=== PATIENT | female | born 1970 | race Caucasian/White ===

== ENCOUNTER 2016-09-06 09:09 | Emergency (ER) | payer SELFPAY ==
[~2016-09-06] VITALS: Ht 162.6 cm; Wt 99.8 kg
[~2016-09-06 09:09] MED LIST: ALBU2.5V5 NEB; AMLO5TAB2 PO; ATEN1TAB4 PO; AZIT250T6 PO; BENZ100C PO; BUDE10.2 IH; GUAI400T61 PO; GUAN1TAB PO; HYDR-971 PO; HYDR12.58 PO; HYDR25TA PO; HYDR5SYR PO; LORA0.5T96 PO; METH4TAB2 PO; NICO1PAT21 TD; Nicotine TD; OLME1TAB5 PO; OXYB15TA PO; OXYC1TAB9 PO; PRED50TA PO; SUVO10TA PO; TEMA15CA PO; VALA1000 PO; ZOLP10TA PO
[2016-09-06] MEDS ORDERED: 0.9 % SODIUM CHLORIDE 10 ML DISP.SYRIN. IV PRN (09:45)
--- NOTE | 2016-09-06 09:57 | PHYS DOC ---
Past Medical History Past Medical History: COPD, Hypertension, Migraines, Pneumonia, Other Additional Past Medical Histor: obesity, chronic back pain Past Surgical History: Other Additional Past Surgical Histo: D&C Alcohol Use: None Drug Use: None Adult General Chief Complaint Chief Complaint: MULTIPLE COMPLAINTS [facility] HPI Patient is a 46 year old female presents emergency room today with complaint of a lump on her right breast that she noticed 2-3 days ago. Patient states that it is painful. Patient states that she does not have a history of recurrent skin infections. She denies history of breast cancer for herself. There is a family history of breast cancer in which her older sister is a breast cancer survivor. Patient is a smoker. Patient denies fevers, chills or unexplained weight loss. Patient states that she had had some episodes of generalized weakness and isolated episodes of vomiting and diarrhea earlier this week. She states this is resolved. Patient states that she has not talked with her primary care doctor about this. Patient has a history of multiple chronic illnesses. She does have COPD and continues to smoke. Review of Systems Review of Systems Constitutional: Denies fever or chills [] Eyes: Denies change in visual acuity, redness, or eye pain [] HENT: Denies nasal congestion or sore throat [] Respiratory: Denies cough or shortness of breath [] Cardiovascular: No additional information not addressed in HPI [] GI: Denies abdominal pain, nausea, vomiting, bloody stools or diarrhea [] : Denies dysuria or hematuria [] Musculoskeletal: Denies back pain or joint pain [] Integument: Denies rash or skin lesions [] Neurologic: Denies headache, focal weakness or sensory changes [] Endocrine: Denies polyuria or polydipsia [] Current Medications Current Medications Current Medications Medications (Trade) Dose Ordered Sig/Franny Start Time Stop Time Status Last Admin Dose Admin Clindamycin Phosphate (Cleocin 600 Mg Premix) 50 ml @ 100 mls/hr 1X ONCE 09/06/16 10:00 09/06/16 10:29 DC 09/06/16 09:58 100 MLS/HR Ketorolac Tromethamine (Toradol) 30 mg 1X ONCE 09/06/16 11:00 09/06/16 11:01 DC 09/06/16 11:08 30 MG Morphine Sulfate 5 mg 5 mg 1X ONCE 09/06/16 10:00 09/06/16 10:01 DC 09/06/16 09:57 5 MG Sodium Chloride (Normal Saline Flush) 10 ml QSHIFT PRN 09/06/16 09:45 09/06/16 09:57 10 ML Allergies Allergies Allergies Coded Allergies Type Severity Reaction Last Updated Verified No Known Drug Allergies 09/06/16 No Physical Exam Physical Exam Constitutional: Well developed, well nourished, no acute distress, non-toxic appearance. Patient sitting upright in semi-Fowlers position in no acute distress. HENT: Normocephalic, atraumatic, bilateral external ears normal, oropharynx moist, no oral exudates, nose normal. [] Eyes: PERRLA, EOMI, conjunctiva normal, no discharge. [] Neck: Normal range of motion, no tenderness, supple, no stridor. [] Cardiovascular:Heart rate regular rhythm, no murmur [] Lungs & Thorax: Bilateral breath sounds clear to auscultation [] Abdomen: Bowel sounds normal, soft, no tenderness, no masses, no pulsatile masses. [] Skin: Patient has pendulous breast. There is a palpable, well-circumscribed subcutaneous lesion to the 6 o'clock position of her right areola. There appears to be a small fluctuant point to this lesion. There is no overlying erythema or peau d'orange. There is no nipple discharge. There is no axillary lymphadenopathy. Back: No tenderness, no CVA tenderness. [] Extremities: No tenderness, no cyanosis, no clubbing, ROM intact, no edema. [] Neurologic: Alert and oriented X 3, normal motor function, normal sensory function, no focal deficits noted. [] Psychologic: Affect normal, judgement normal, mood normal. [] Current Patient Data Vital Signs Vital Signs Date Time Temp Pulse Resp B/P Pulse Ox O2 Delivery O2 Flow Rate FiO2 09/06/16 10:01 93 16 120/83 92 Room Air 09/06/16 09:16 97.9 97.9 Lab Values Laboratory Tests Test 09/06/16 09:47 White Blood Count 8.7x10^3/uL (4.0-11.0) Red Blood Count 5.00x10^6/uL (3.50-5.40) Hemoglobin 15.0g/dL (12.0-15.5) Hematocrit 43.7% (36.0-47.0) Mean Corpuscular Volume 88fL (79-100) Mean Corpuscular Hemoglobin 30pg (25-35) Mean Corpuscular Hemoglobin Concent 34g/dL (31-37) Red Cell Distribution Width 13.9% (11.5-14.5) Platelet Count 233x10^3/uL (140-400) Neutrophils (%) (Auto) 57% (31-73) Lymphocytes (%) (Auto) 29% (24-48) Monocytes (%) (Auto) 9% (0-9) Eosinophils (%) (Auto) 4% (0-3) H Basophils (%) (Auto) 1% (0-3) Neutrophils # (Auto) 5.0x10^3uL (1.8-7.7) Lymphocytes # (Auto) 2.6x10^3/uL (1.0-4.8) Monocytes # (Auto) 0.8x10^3/uL (0.0-1.1) Eosinophils # (Auto) 0.3x10^3/uL (0.0-0.7) Basophils # (Auto) 0.1x10^3/uL (0.0-0.2) Sodium Level 140mmol/L (136-145) Potassium Level 4.3mmol/L (3.5-5.1) Chloride Level 104mmol/L (98-107) Carbon Dioxide Level 27mmol/L (21-32) Anion Gap 9 (6-14) Blood Urea Nitrogen 13mg/dL (7-20) Creatinine 0.6mg/dL (0.6-1.0) Estimated GFR (Cockcroft-Gault) 106.7 BUN/Creatinine Ratio 22 (6-20) H Glucose Level 109mg/dL (70-99) H Calcium Level 9.2mg/dL (8.5-10.1) Total Bilirubin 0.2mg/dL (0.2-1.0) Aspartate Amino Transferase (AST) 15U/L (15-37) Alanine Aminotransferase (ALT) 20U/L (14-59) Alkaline Phosphatase 80U/L (46-116) Total Protein 7.7g/dL (6.4-8.2) Albumin 3.6g/dL (3.4-5.0) Albumin/Globulin Ratio 0.9 (1.0-1.7) L Laboratory Tests 09/06/16 09:47 Laboratory Tests 09/06/16 09:47 EKG EKG [] Radiology/Procedures Radiology/Procedures [facility] [address] [place] [address] IMAGING REPORT Signed PATIENT: AMARI GREEN ACCOUNT: [id number] : 1970 LOCATION: ER AGE: 46 SEX: F EXAM STATUS: REG ER ORD. PHYSICIAN: ROSELINE HASTINGS REASON: swollen lesion/pain at 6 o'clock position of areola PROCEDURE: BREAST RIGHT Right breast ultrasound, 09/06/2016: History: Swelling, pain The area of clinical concern at the 6:00 location was carefully scanned. There is a 7 mm hypoechoic mass within the skin in the area of concern. It demonstrates internal hypervascularity posteriorly and in the adjacent soft tissues. There is an anterior component which does not demonstrate blood flow and may represent a complicated fluid component. The underlying breast tissues demonstrate a normal heterogeneous echo pattern. No underlying breast mass is evident. IMPRESSION: Inflamed skin lesion as described above with diagnostic considerations including an infected epidermal inclusion cyst or carbuncle. No underlying mass within the breast is seen, and therefore inflammatory breast cancer involving the skin is much less likely. Clinical follow-up is suggested. Routine mammography, following abatement of this inflammatory process, is also suggested if not already performed elsewhere. DICTATED and SIGNED BY: MAXWELL ZEPEDA MD DATE: 09/06/16900 CC: ROSELINE HASTINGS; ANN DAVENPORT MD; NON,STAFF ~ Course & Med Decision Making Course & Med Decision Making Pertinent Labs and Imaging studies reviewed. (See chart for details) [] Dragon Disclaimer Dragon Disclaimer This electronic medical record was generated, in whole or in part, using a voice recognition dictation system. Departure Departure Impression: Primary Impression: Abscess Disposition: 01 HOME, SELF-CARE Condition: GOOD Referrals: ANN DAVENPORT MD (PCP) YOUNG QUIROGA MD Patient Instructions: Abscess, Care After Additional Instructions: 1. Take the medication as prescribed. 2. Apply warm compresses over the area every 2 hours for 20-30 minutes at a time. 3. Avoid squeezing or poking the area. 4. Review the discharge instructions provided for self-care and reasons to return the emergency department. 5. Call the number provided in your discharge paperwork to schedule follow-up appointment with a surgeon for next week. Scripts Ketorolac Tromethamine 10 Mg Tablet1 Tab PO PRN Q6HRS #20 TAB Prov:ROSELINE HASTINGS 09/06/16 Clindamycin Hcl 300 Mg [id number] Mg PO QID #40 CAP Prov:ROSELINE HASTINGS 09/06/16 ROSELINE HASTINGS Sep 06, 2016 09:57
[2016-09-06 10:00] LABS: BASO # 0.1 x10^3/uL (0.0-0.2); BASO % 1 % (0-3); EOS % 4 % (0-3); HEMATOCRIT 43.7 % (36.0-47.0); LYMPH # 2.6 x10^3/uL (1.0-4.8); LYMPH % 29 % (24-48); MEAN CORPUSCULAR HEMOGLOBIN 30 pg (25-35); MEAN CORPUSCULAR HGB CONC 34 g/dL (31-37); MEAN CORPUSCULAR VOLUME 88 fL (79-100); MONO % 9 % (0-9); NEUT % 57 % (31-73); PLATELET COUNT 233 x10^3/uL (140-400); RED CELL DISTRIBUTION WIDTH 13.9 % (11.5-14.5); WHITE BLOOD COUNT 8.7 x10^3/uL (4.0-11.0)
[2016-09-06] MEDS ORDERED: CLINDAMYCIN 600MG PREMIX 50 ML IV ONE (10:00)
[2016-09-06] MEDS ORDERED: MORPHINE SULFATE 10 MG/ML VIAL. IV ONE (10:00)
[2016-09-06 10:43] LABS: CALCIUM 9.2 mg/dL (8.5-10.1); CREATININE 0.6 mg/dL (0.6-1.0); GFR 106.7; POTASSIUM 4.3 mmol/L (3.5-5.1)
[2016-09-06 10:49] LABS: ALBUMIN 3.6 g/dL (3.4-5.0); ALBUMIN/GLOBULIN RATIO 0.9 (1.0-1.7); TOTAL BILIRUBIN 0.2 mg/dL (0.2-1.0); TOTAL PROTEIN 7.7 g/dL (6.4-8.2)
[2016-09-06] MEDS ORDERED: KETOROLAC TROMETHAMINE 30 MG/ML INJ. IV ONE (11:00)
--- NOTE | 2016-09-06 11:11 | RAD ---
Right breast ultrasound, 09/06/2016: History: Swelling, pain The area of clinical concern at the 6:00 location was carefully scanned. There is a 7 mm hypoechoic mass within the skin in the area of concern. It demonstrates internal hypervascularity posteriorly and in the adjacent soft tissues. There is an anterior component which does not demonstrate blood flow and may represent a complicated fluid component. The underlying breast tissues demonstrate a normal heterogeneous echo pattern. No underlying breast mass is evident. IMPRESSION: Inflamed skin lesion as described above with diagnostic considerations including an infected epidermal inclusion cyst or carbuncle. No underlying mass within the breast is seen, and therefore inflammatory breast cancer involving the skin is much less likely. Clinical follow-up is suggested. Routine mammography, following abatement of this inflammatory process, is also suggested if not already performed elsewhere.
[2016-09-06] MEDS ORDERED: CLIN300C86 PO (11:23)
[2016-09-06] MEDS ORDERED: KETO10TA PO (11:23)
[2016-09-06 11:26] VITALS: BP 133/78
== END 2016-09-06 11:33 | disposition home or self-care (01) ==
LOC: ER 09:09
DX: N61.1 Abscess of the breast and nipple (principal); J44.9 Chronic obstructive pulmonary disease, unspecified; I10 Essential (primary) hypertension; G89.29 Other chronic pain; G43.909 Migraine, unspecified, not intractable, without status migrainosus; E66.9 Obesity, unspecified; F17.200 Nicotine dependence, unspecified, uncomplicated; Z80.3 Family history of malignant neoplasm of breast; Z87.01 Personal history of pneumonia (recurrent); Z68.37 Body mass index [BMI] 37.0-37.9, adult
CPT/HCPCS: 36415; 76641; 80053; 85027; 96365; 96375; 99285; J1885; J2270; J3490

== ENCOUNTER 2017-01-02 23:11 | Inpatient (IN) | payer SELFPAY ==
[~2017-01-02] VITALS: Ht 162.6 cm; Wt 57.7 kg
[~2017-01-02 23:11] MED LIST changes: +CLIN300C8 PO; +KETO10TA PO; +OLME1TAB25 PO; -OLME1TAB5 PO
[2017-01-02] MEDS ORDERED: IPRATRPIUM/ALBUTEROL 0.5/2.5MG 3 ML NEBU. NEB ONE (23:45)
[2017-01-02] MEDS ORDERED: DEXAMETHASONE SOD PHOS 4 MG/ML VIAL IV ONE (23:45)
[2017-01-02] MEDS ORDERED: ONDANSETRON PF 4 MG/2 ML VIAL. IV ONE (23:45)
[2017-01-02 23:49] LABS: BASO # 0.1 x10^3/uL (0.0-0.2); BASO % 1 % (0-3); EOS % 1 % (0-3); HEMATOCRIT 43.5 % (36.0-47.0); HEMOGLOBIN 14.6 g/dL (12.0-15.5); LYMPH # 5.1 x10^3/uL (1.0-4.8); LYMPH % 34 % (24-48); MEAN CORPUSCULAR HEMOGLOBIN 30 pg (25-35); MEAN CORPUSCULAR HGB CONC 34 g/dL (31-37); MEAN CORPUSCULAR VOLUME 90 fL (79-100); MONO % 6 % (0-9); NEUT % 58 % (31-73); PLATELET COUNT 250 x10^3/uL (140-400); RED BLOOD COUNT 4.84 x10^6/uL (3.50-5.40); RED CELL DISTRIBUTION WIDTH 14.1 % (11.5-14.5); WHITE BLOOD COUNT 14.9 x10^3/uL (4.0-11.0)
--- NOTE | 2017-01-02 23:54 | PHYS DOC ---
Past Medical History Past Medical History: COPD, Hypertension, Migraines, Pneumonia, Other Additional Past Medical Histor: obesity, chronic back pain Past Surgical History: Other Additional Past Surgical Histo: D&C Alcohol Use: None Drug Use: None Adult General Chief Complaint Chief Complaint: SHORTNESS OF BREATH HPI HPI Patient is a 46 year old F who presents with wheezing and shortness of breath. Patient has history of smoking with COPD presents with wheezing and difficult breathing for the past 3 days. Patient's O2 saturation room air was 89%, patient does not wear home oxygen. Patient still smoking. Patient denies any chest pain. Patient denies any fevers. Patient denies a productive cough. Patient has no other complaints. Review of Systems Review of Systems GEN: Denies fevers, chills, sweats HEENT: Denies blurred vision, sore throat CV: Denies chest pain RESP: SOA , wheezing GI: Denies n/v/d NEURO: Denies confusion, dizziness MSK: Denies weakness, joint pain/swelling Current Medications Current Medications Current Medications Medications (Trade) Dose Ordered Sig/Franny Start Time Stop Time Status Last Admin Dose Admin Albuterol/ Ipratropium (Duoneb) 3 ml 1X ONCE 01/02/17 23:45 01/02/17 23:46 DC 01/02/17 23:52 3 ML Dexamethasone Sodium Phosphate (Decadron) 10 mg 1X ONCE 01/02/17 23:45 01/02/17 23:46 DC 01/02/17 23:40 10 MG Fentanyl Citrate (Fentanyl 2ml Vial) 50 mcg 1X ONCE 01/03/17 00:15 01/03/17 00:16 DC 01/03/17 00:24 50 MCG Info (Do NOT chart on this entry -- for MONITORING) 1 each PRN DAILY PRN 01/03/17 00:15 01/05/17 00:14 Iohexol (Omnipaque 300 Mg/ml) 75 ml 1X ONCE 01/03/17 00:30 01/03/17 00:31 DC 01/03/17 00:44 75 ML Ondansetron HCl (Zofran) 4 mg 1X ONCE 01/02/17 23:45 01/02/17 23:46 DC 01/02/17 23:40 4 MG Allergies Allergies Allergies Coded Allergies Type Severity Reaction Last Updated Verified No Known Drug Allergies 09/06/16 No Physical Exam Physical Exam GEN.: No apparent distress. Alert and oriented. HEENT: Head is normocephalic, atraumatic NECK: Supple. LUNGS: Tachypnea, wheezing bilaterally inspiratory and expiratory HEART: RRR, S1, S2 present. Peripheral pulses intact ABDOMEN: Soft, nontender. Positive bowel sounds. EXTREMITIES: Without any cyanosis. NEUROLOGIC: Normal speech, normal tone PSYCHIATRIC: Normal affect, normal mood. SKIN: No ulcerations Current Patient Data Vital Signs Vital Signs Date Time Temp Pulse Resp B/P (MAP) Pulse Ox O2 Delivery O2 Flow Rate FiO2 01/03/17 00:40 83 22 126/73 (90) 94 Nasal Cannula 3.0 01/02/17 23:17 98.0 98.0 Lab Values Laboratory Tests Test 01/02/17 23:35 White Blood Count 14.9 x10^3/uL (4.0-11.0) H Red Blood Count 4.84 x10^6/uL (3.50-5.40) Hemoglobin 14.6 g/dL (12.0-15.5) Hematocrit 43.5 % (36.0-47.0) Mean Corpuscular Volume 90 fL (79-100) Mean Corpuscular Hemoglobin 30 pg (25-35) Mean Corpuscular Hemoglobin Concent 34 g/dL (31-37) Red Cell Distribution Width 14.1 % (11.5-14.5) Platelet Count 250 x10^3/uL (140-400) Neutrophils (%) (Auto) 58 % (31-73) Lymphocytes (%) (Auto) 34 % (24-48) Monocytes (%) (Auto) 6 % (0-9) Eosinophils (%) (Auto) 1 % (0-3) Basophils (%) (Auto) 1 % (0-3) Neutrophils # (Auto) 8.7 x10^3uL (1.8-7.7) H Lymphocytes # (Auto) 5.1 x10^3/uL (1.0-4.8) H Monocytes # (Auto) 0.8 x10^3/uL (0.0-1.1) Eosinophils # (Auto) 0.2 x10^3/uL (0.0-0.7) Basophils # (Auto) 0.1 x10^3/uL (0.0-0.2) Sodium Level 143 mmol/L (136-145) Potassium Level 4.2 mmol/L (3.5-5.1) Chloride Level 104 mmol/L (98-107) Carbon Dioxide Level 35 mmol/L (21-32) H Anion Gap 4 (6-14) L Blood Urea Nitrogen 17 mg/dL (7-20) Creatinine 0.7 mg/dL (0.6-1.0) Estimated GFR (Cockcroft-Gault) 89.3 BUN/Creatinine Ratio 24 (6-20) H Glucose Level 100 mg/dL (70-99) H Calcium Level 8.8 mg/dL (8.5-10.1) Total Bilirubin 0.2 mg/dL (0.2-1.0) Aspartate Amino Transferase (AST) 8 U/L (15-37) L Alanine Aminotransferase (ALT) 19 U/L (14-59) Alkaline Phosphatase 77 U/L (46-116) Troponin I Quantitative < 0.017 ng/mL (0.000-0.055) Total Protein 7.4 g/dL (6.4-8.2) Albumin 3.8 g/dL (3.4-5.0) Albumin/Globulin Ratio 1.1 (1.0-1.7) Laboratory Tests 01/02/17 23:35 Laboratory Tests 01/02/17 23:35 EKG EKG 2323: EKG shows normal sinus rhythm rate of 82 no STEMI [] Radiology/Procedures Radiology/Procedures Chest x-ray NAD CT angiogram of the chest shows a left lower lobe PE [] Course & Med Decision Making Course & Med Decision Making Pertinent Labs and Imaging studies reviewed. (See chart for details) ED course: Patient was seen and examined emergency room CBC, CMP, troponin, chest x-ray, EKG, CT scan of the chest was ordered 0100: Patient still wheezing heavily and well get an ABG in place the patient on BiPAP 0110: Radiologist called stating that the patient has a left lower lobe PE 0115: Explained results the patient and plan to admit to the ICU and be placed on a heparin drip Discussed CC/HP/PMH with Dr. Comer and recommends admit [] [] Dragon Disclaimer Dragon Disclaimer This electronic medical record was generated, in whole or in part, using a voice recognition dictation system. Departure Departure Impression: Primary Impression: COPD (chronic obstructive pulmonary disease) case management patient Additional Impression: Pulmonary embolus Disposition: 09 ADMITTED INPATIENT Admitting Physician: Jenna Comer Condition: IMPROVED Referrals: UNKNOWN PCP NAME (PCP) Problem Qualifiers ARON KUMAR DO Jan 02, 2017 23:53
[2017-01-03] VITALS (20 sets, daily range): BP systolic 90–141; BP diastolic 47–93
[2017-01-03 00:03] LABS: CALCIUM 8.8 mg/dL (8.5-10.1); CREATININE 0.7 mg/dL (0.6-1.0); GFR 89.3; POTASSIUM 4.2 mmol/L (3.5-5.1)
[2017-01-03 00:05] LABS: ALBUMIN 3.8 g/dL (3.4-5.0); ALBUMIN/GLOBULIN RATIO 1.1 (1.0-1.7); TOTAL BILIRUBIN 0.2 mg/dL (0.2-1.0); TOTAL PROTEIN 7.4 g/dL (6.4-8.2)
[2017-01-03] MEDS ORDERED: fentaNYL PF VIAL 100 MCG/2 ML VIAL IV ONE (00:15)
[2017-01-03] MEDS ORDERED: CONTRAST GIVEN MC PRN (00:15)
[2017-01-03] MEDS ORDERED: IOHEXOL 300 MG/ML 75 ML VIAL IV ONE (00:30)
--- NOTE | 2017-01-03 01:17 | RAD ---
CT angiography chest with contrast HISTORY: Shortness of breath. TECHNIQUE: Helical CT imaging of the chest with multiplanar 3-D MIP reconstructions of the pulmonary arteries to assess for emboli with 75 mL Omnipaque 300 intravenous contrast. FINDINGS: At the left lower lobe anterior basilar pulmonary artery demonstrates an anterior eccentric nonocclusive filling defect on axial images 73-77 raise the possibility of a small nonocclusive pulmonary embolism although this is in a region of respiratory motion artifact raising the possibility of an artifact given that the other vessels at this area of motion do not demonstrate the same artifact raises suspicion of potential embolus. Thoracic aorta unremarkable. Heart size normal. Esophagus unremarkable. No adenopathy in the chest. Centrilobular emphysema preferentially involving the right upper lobe. Calcified granulomas mediastinum and right hilum. Right upper lobe subsolid nodule maximum diameter 1.9 cm. No pleural effusions. Bones unremarkable. 1 cm nonspecific left hepatic lobe hypodense lesion. IMPRESSION: 1. Small nonocclusive pulmonary artery embolus of the left lower lobe as described above. 2. 1.9 cm subsolid pulmonary nodule of the right upper lobe. Follow-up CT imaging in 3-6 months is advised per Fleischner guidelines. Critical results called to Dr. Henriquez 1:12 AM January 03, 2017. Exposure: One or more of the following individualized dose reduction techniques were utilized for this examination: 1. Automated exposure control 2. Adjustment of the mA and/or kV according to patient size 3. Use of iterative reconstruction technique Electronically signed by: Manuel Aguilar MD (01/03/2017 1:12 AM) [id number]
[2017-01-03 01:27] LABS: PH ABG 7.31 (7.35-7.45)
[2017-01-03 01:28] LABS: ALLEN TEST positive; FIO2 ABG 32; HCO3 ABG 28 mmol/L (21-28); PCO2 ABG 57 mmHg (35-46); PO2 ABG 86 mmHg (75-108); SAT O2 ABG 95 % (92-99)
[2017-01-03] MEDS ORDERED: ONDANSETRON PF 4 MG/2 ML VIAL. IV PRN (01:30)
[2017-01-03] MEDS ORDERED: HEPARIN for IV BOLUS 10,000 UNIT/10 ML VIAL. IV PRN ×2 (01:30)
[2017-01-03] MEDS ORDERED: ACETAMINOPHEN 325 MG TABLET. PO PRN (01:30)
[2017-01-03] MEDS ORDERED: ANTI-COAG MONITOR BY PHARMACY. MC PRN (01:30)
[2017-01-03] MEDS: HEPARIN 25,000UTS/500ML PREMIX 500 ML IV PRN ×2 (01:48→17:03)
[2017-01-03] MEDS ORDERED: HEPARIN for IV BOLUS 10,000 UNIT/10 ML VIAL. IV ONE (02:00)
[2017-01-03] MEDS: MORPHINE SULFATE 4 MG/ML DISP.SYRIN. IV PRN ×3 (05:23→10:57)
[2017-01-03] MEDS ORDERED: LISI-334 PO (05:36)
[2017-01-03] MEDS ORDERED: LOVA20TA2 PO (05:36)
[2017-01-03] MEDS ORDERED: PRED-220 PO (05:36)
[2017-01-03] MEDS ORDERED: AMLODIPINE (05:36)
--- NOTE | 2017-01-03 06:09 | EKG ---
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
[2017-01-03 07:53] LABS: HCO3 ABG 31 mmol/L (21-28); PH ABG 7.33 (7.35-7.45); PO2 ABG 72 mmHg (75-108); SAT O2 ABG 94 % (92-99)
[2017-01-03 08:58] LABS: FIO2 ABG 36; PCO2 ABG 60 mmHg (35-46)
[2017-01-03] MEDS ORDERED: predniSONE 10 MG TABLET PO SCH (09:00)
[2017-01-03] MEDS: IPRATRPIUM/ALBUTEROL 0.5/2.5MG 3 ML NEBU. NEB SCH ×4 (09:06→20:00)
--- NOTE | 2017-01-03 09:13 | PDOC1 ---
History and Physical Date of Admission Date of Admission DATE: 01/03/17 TIME: 09:07 Identification/Chief Complaint Chief Complaint short of breath Problems: Source Source: Caregiver (sister), Chart review, Patient History of Present Illness History of Present Illness Ms. Valencia, is a 46 year old admitted to ICU overnight with acute wheezing and shortness of breath. ABG showed acidosis, IV steroids given, pt has been on Bipap overnight, and feels a little better. Patient has history of early COPD and had new wheezing and difficulty breathing over 3 days, and marked distress in the ER last night per patient and her sister this AM. Sa02 was 89%, ongoing tobacco use, but down to 1/4 ppd. no chest pain, some anxiety, is tearful this AM. Past Medical History Cardiovascular: HTN Pulmonary: COPD GI: GERD Heme/Onc: No pertinent hx Hepatobiliary: No pertinent hx Psych: Anxiety, Depression Musculoskeletal: low back pain, Osteoarthritis, Other (spinal stenosis) Infectious disease: No pertinent hx Renal/: Other Endocrine: No pertinent hx Past Surgical History Past Surgical History: Other Family History Family History: Coronary Artery Disease, Depression, Hypertension, Kidney Disease, Stroke, Urinary Tract Infection Social History Smoke: <1 pack per day ALCOHOL: none Drugs: None Current Problem List Problem List Problems Medical Problems: (1) COPD (chronic obstructive pulmonary disease) case managementpatient Status: Acute (2) Pulmonary embolus Status: Acute Problems: Current Medications Current Medications Current Medications Albuterol/ Ipratropium (Duoneb) 3 ml 1X ONCE NEB Last administered on 23:52; Start 01/02/17 at 23:45; Stop 01/02/17 at 23:46; Status DC Dexamethasone Sodium Phosphate (Decadron) 10 mg 1X ONCE IV Last administered on 01/02/17 23:40; Start 01/02/17 at 23:45; Stop 01/02/17 at 23:46; Status DC Ondansetron HCl (Zofran) 4 mg 1X ONCE IV Last administered on 01/02/17 23:40; Start 01/02/17 at 23:45; Stop 01/02/17 at 23:46; Status DC Fentanyl Citrate (Fentanyl 2ml Vial) 50 mcg 1X ONCE IV Last administered on 00:24; Start 01/03/17 at 00:15; Stop 01/03/17 at 00:16; Status DC Iohexol (Omnipaque 300 Mg/ml) 75 ml 1X ONCE IV Last administered on 01/03/17 00:44; Start 01/03/17 at 00:30; Stop 01/03/17 at 00:31; Status DC Info (Do NOT chart on this entry -- for MONITORING) 1 each PRN DAILY PRN MC SEE COMMENTS; Start 01/03/17 at 00:15; Stop 01/05/17 at 00:14 Heparin Sodium (Porcine) (Heparin Sodium) 8,000 unit 1X ONCE IV Last administered on 01/03/17 01:45; Start 01/03/17 at 02:00; Stop 01/03/17 at 02:01; Status DC Heparin Sodium/ Dextrose 500 ml @ 0 mls/hr CONT PRN IV SEE I/O RECORD Last administered on 01/03/17 01:48; Start 01/03/17 at 01:30 Heparin Sodium (Porcine) (Heparin Sodium) 3,000 unit PRN Q6HRS PRN IV FOR UFH LEVEL LESS THAN 0.2; Start 01/03/17 at 01:30 Heparin Sodium (Porcine) (Heparin Sodium) 1,500 unit PRN Q6HRS PRN IV FOR UFH LEVEL 0.2 - 0.29; Start 01/03/17 at 01:30 Warfarin Sodium (Coumadin Per Pharmacy) 1 each PRN DAILY PRN MC PER PROTOCOL; Start 01/03/17 at 01:30 Ondansetron HCl (Zofran) 4 mg PRN Q8HRS PRN IV NAUSEA/VOMITING; Start 01/03/17 at 01:30; Stop 01/04/17 at 01:29 Morphine Sulfate 4 mg PRN Q2HR PRN IV SEVERE PAIN Last administered on 07:35; Start 01/03/17 at 01:30; Stop 01/04/17 at 01:29 Acetaminophen (Tylenol) 650 mg PRN Q4HRS PRN PO FEVER; Start 01/03/17 at 01:30; Stop 01/04/17 at 01:29 Info (Anti-Coagulation Monitoring By Pharmacy) 1 each PRN DAILY PRN MC SEE COMMENTS Last administered on 01/03/17 03:42; Start 01/03/17 at 01:30 Lorazepam (Ativan) 1 mg 1X ONCE IV Last administered on 01/03/17t 01:52; Start 01/03/17 at 02:00; Stop 01/03/17 at 02:01; Status DC Active Scripts Active [place] 5-325 Tablet (Acetaminophen/Hydrocodone Bitart) 1 Each Tablet 1-2 Tab PO Q4-6HRS Reported [amlododipine] Lovastatin 20 Mg Tablet 20 Mg PO HS Lisinopril 20 Mg Tablet 20 Mg PO DAILY Prednisone 10 Mg Tablet 10 Mg PO DAILY Albuterol Sulfate Neb Soln (Albuterol Sulfate) 2.5 Mg/3 Ml Vial.neb 2.5 Mg NEB BID Allergies Allergies: Coded Allergies: No Known Drug Allergies (Unverified , 09/06/16) ROS General: No: Chills, Night Sweats, Fatigue, Malaise, Appetite, Other PSYCHOLOGICAL ROS: No: Anxiety, Behavioral Disorder, Concentration difficultie , Decreased libido, Depression, Disorientation, Hallucinations, Hostility, Irritablity, Memory difficulties, Mood Swings, Obsessive thoughts, Physical abuse, Sexual abuse, Sleep disturbances, Suicidal ideation, Other Eyes: No Blurry vision, No Decreased vision, No Double vision, No Dry eyes, No Excessive tearing, No Eye Pain, No Itchy Eyes, No Loss of vision, No Photophobia , No Scotomata, No Uses contacts, No Uses glasses, No Other HEENT: YES: Heacaches, No: Visual Changes, Hearing change, Nasal congestion, Nasal discharge, Oral lesions, Sinus pain, Sore Throat, Epistaxis, Sneezing, Snoring, Tinnitus, Vertigo, Vocal changes, Other Respiratory: YES: Cough, Shortness of breath, SOB with excertion, No: Hemoptysis, Orthopnea, Pleuritic Pain, Sputum Changes, Stridor, Tachypnea , Wheezing, Other Cardiovascular: No Chest Pain, No Palpitations, No Orthopnea, No Paroxysmal Noc. Dyspnea, No Edema, No Lt Headedness, No Other Gastrointestinal: Yes Nausea, No Vomiting, No Abdominal Pain, No Diarrhea, No Constipation, No Melena, No Hematochezia, No Other Genitourinary: No Dysuria, No Frequency, No Incontinence, No Hematuria, No Retention, No Discharge, No Urgency, No Pain, No Flank Pain, No Other, No , No , No , No , No , No , No Musculoskeletal: Yes Gait Disturbance, Yes Joint Pain, Yes Joint Stiffness Neurological: Yes Numbness/Tingling, No Behavorial Changes, No Bowel/Bladder ControlChng, No Confusion, No Dizziness, No Gait Disturbance, No Headaches, No Impaired Coord/balance, No Memory Loss, No Seizures, No Speech Problems, No Tremors, No Visual Changes, No Weakness, No Other Skin: Yes Dry Skin, No Eczema, No Hair Changes, No Lumps, No Mole Changes, No Mottling, No Nail Changes, No Pruritus, No Rash, No Skin Lesion Changes, No Other, No Acne Physical Exam General: Alert, Oriented X3, Cooperative, moderate distress HEENT: Atraumatic, PERRLA, EOMI, Mucous membr. moist/pink Lungs: Other (mod low vol for age, no rhonchi, no wheeze, ) Heart: no gallops, no murmurs Abdomen: Normal bowel sounds, Soft (obese) Extremities: No edema, Normal pulses Skin: No rashes Neuro: Normal speech, Normal tone, Sensation intact Psych/Mental Status: Mental status NL, Other (affect flat, tearful) Vitals Vitals Vital Signs Date Time Temp Pulse Resp B/P (MAP) Pulse Ox O2 Delivery O2 Flow Rate FiO2 01/03/17 08:00 98.6 100 25 141/93 (109) 94 Nasal Cannula 4.0 98.6 Labs Labs Laboratory Tests Test 01/02/17 23:35 01/03/17 01:08 01/03/17 07:45 01/03/17 07:48 White Blood Count 14.9 x10^3/uL (4.0-11.0) Red Blood Count 4.84 x10^6/uL (3.50-5.40) Hemoglobin 14.6 g/dL (12.0-15.5) Hematocrit 43.5 % (36.0-47.0) Mean Corpuscular Volume 90 fL (79-100) Mean Corpuscular Hemoglobin 30 pg (25-35) Mean Corpuscular Hemoglobin Concent 34 g/dL (31-37) Red Cell Distribution Width 14.1 % (11.5-14.5) Platelet Count 250 x10^3/uL (140-400) Neutrophils (%) (Auto) 58 % (31-73) Lymphocytes (%) (Auto) 34 % (24-48) Monocytes (%) (Auto) 6 % (0-9) Eosinophils (%) (Auto) 1 % (0-3) Basophils (%) (Auto) 1 % (0-3) Neutrophils # (Auto) 8.7 x10^3uL (1.8-7.7) Lymphocytes # (Auto) 5.1 x10^3/uL (1.0-4.8) Monocytes # (Auto) 0.8 x10^3/uL (0.0-1.1) Eosinophils # (Auto) 0.2 x10^3/uL (0.0-0.7) Basophils # (Auto) 0.1 x10^3/uL (0.0-0.2) Sodium Level 143 mmol/L (136-145) Potassium Level 4.2 mmol/L (3.5-5.1) Chloride Level 104 mmol/L (98-107) Carbon Dioxide Level 35 mmol/L (21-32) Anion Gap 4 (6-14) Blood Urea Nitrogen 17 mg/dL (7-20) Creatinine 0.7 mg/dL (0.6-1.0) Estimated GFR (Cockcroft-Gault) 89.3 BUN/Creatinine Ratio 24 (6-20) Glucose Level 100 mg/dL (70-99) Calcium Level 8.8 mg/dL (8.5-10.1) Total Bilirubin 0.2 mg/dL (0.2-1.0) Aspartate Amino Transf (AST/SGOT) 8 U/L (15-37) Alanine Aminotransferase (ALT/SGPT) 19 U/L (14-59) Alkaline Phosphatase 77 U/L (46-116) Troponin I Quantitative < 0.017 ng/mL (0.000-0.055) Total Protein 7.4 g/dL (6.4-8.2) Albumin 3.8 g/dL (3.4-5.0) Albumin/Globulin Ratio 1.1 (1.0-1.7) O2 Saturation 95 % (92-99) 94 % (92-99) Arterial Blood pH 7.31 (7.35-7.45) 7.33 (7.35-7.45) Arterial Blood pCO2 at Patient Temp 57 mmHg (35-46) 60 mmHg (35-46) Arterial Blood pO2 at Patient Temp 86 mmHg (75-108) 72 mmHg (75-108) Arterial Blood HCO3 28 mmol/L (21-28) 31 mmol/L (21-28) Arterial Blood Base Excess 1 mmol/L (-3-3) 3 mmol/L (-3-3) FiO2 32 36 Prothrombin Time 13.0 SEC (11.7-14.0) Prothromb Time International Ratio 1.0 (0.8-1.1) Heparin Anti-Xa Act, Unfractionated 0.88 IU/mL (0.30-0.70) Laboratory Tests Test 01/02/17 23:35 01/03/17 01:08 01/03/17 07:45 01/03/17 07:48 White Blood Count 14.9 x10^3/uL (4.0-11.0) Red Blood Count 4.84 x10^6/uL (3.50-5.40) Hemoglobin 14.6 g/dL (12.0-15.5) Hematocrit 43.5 % (36.0-47.0) Mean Corpuscular Volume 90 fL (79-100) Mean Corpuscular Hemoglobin 30 pg (25-35) Mean Corpuscular Hemoglobin Concent 34 g/dL (31-37) Red Cell Distribution Width 14.1 % (11.5-14.5) Platelet Count 250 x10^3/uL (140-400) Neutrophils (%) (Auto) 58 % (31-73) Lymphocytes (%) (Auto) 34 % (24-48) Monocytes (%) (Auto) 6 % (0-9) Eosinophils (%) (Auto) 1 % (0-3) Basophils (%) (Auto) 1 % (0-3) Neutrophils # (Auto) 8.7 x10^3uL (1.8-7.7) Lymphocytes # (Auto) 5.1 x10^3/uL (1.0-4.8) Monocytes # (Auto) 0.8 x10^3/uL (0.0-1.1) Eosinophils # (Auto) 0.2 x10^3/uL (0.0-0.7) Basophils # (Auto) 0.1 x10^3/uL (0.0-0.2) Sodium Level 143 mmol/L (136-145) Potassium Level 4.2 mmol/L (3.5-5.1) Chloride Level 104 mmol/L (98-107) Carbon Dioxide Level 35 mmol/L (21-32) Anion Gap 4 (6-14) Blood Urea Nitrogen 17 mg/dL (7-20) Creatinine 0.7 mg/dL (0.6-1.0) Estimated GFR (Cockcroft-Gault) 89.3 BUN/Creatinine Ratio 24 (6-20) Glucose Level 100 mg/dL (70-99) Calcium Level 8.8 mg/dL (8.5-10.1) Total Bilirubin 0.2 mg/dL (0.2-1.0) Aspartate Amino Transf (AST/SGOT) 8 U/L (15-37) Alanine Aminotransferase (ALT/SGPT) 19 U/L (14-59) Alkaline Phosphatase 77 U/L (46-116) Troponin I Quantitative < 0.017 ng/mL (0.000-0.055) Total Protein 7.4 g/dL (6.4-8.2) Albumin 3.8 g/dL (3.4-5.0) Albumin/Globulin Ratio 1.1 (1.0-1.7) O2 Saturation 95 % (92-99) 94 % (92-99) Arterial Blood pH 7.31 (7.35-7.45) 7.33 (7.35-7.45) Arterial Blood pCO2 at Patient Temp 57 mmHg (35-46) 60 mmHg (35-46) Arterial Blood pO2 at Patient Temp 86 mmHg (75-108) 72 mmHg (75-108) Arterial Blood HCO3 28 mmol/L (21-28) 31 mmol/L (21-28) Arterial Blood Base Excess 1 mmol/L (-3-3) 3 mmol/L (-3-3) FiO2 32 36 Prothrombin Time 13.0 SEC (11.7-14.0) Prothromb Time International Ratio 1.0 (0.8-1.1) Heparin Anti-Xa Act, Unfractionated 0.88 IU/mL (0.30-0.70) VTE Prophylaxis Ordered VTE Prophylaxis Devices: Yes VTE Pharmacological Prophylaxi: Yes Assessment/Plan Assessment/Plan Acute on chronic hypercarbic respiratory failure, acidosis on ABG IV steroid, change to PO, nebs and inhl steroid, no sputum, cxr clear, no abx started New pulmonary embolism with subclinical hypoxia, replace 02 as needed, on heparin gtt, start coumadin today per pharmacy. pt has no health insurance, f/ u may be difficult leukocytosis, had been taking prednisone, +SIRS, due to non-infectious, tobacco use d.o, trying to quit, discussed obesity, BMI 39 Htn hyperlipids TRELL MORALES MD Jan 03, 2017 09:13
[2017-01-03] MEDS ORDERED: predniSONE 20 MG TABLET PO ONE (09:30)
[2017-01-03] MEDS ORDERED: BUDESONIDE 0.5 MG/2 ML NEBU. NEB ONE (09:30)
[2017-01-03] MEDS: LISINOPRIL 20 MG TABLET PO SCH (09:34)
--- NOTE | 2017-01-03 10:06 | RAD ---
AP chest radiograph 01/02/2017 Clinical indication: Shortness of air Comparison: Chest radiographs February 25, 2016. Findings: Cardiac and mid sternal silhouettes are within normal limits. No pleural effusion, pneumothorax or focal consolidation. Impression: No acute cardiopulmonary abnormality.
[2017-01-03] MEDS: HYDROcodone/APAP 5/325MG 1 TAB TABLET PO PRN ×2 (12:32→20:11)
--- NOTE | 2017-01-03 15:55 | PDOC ---
PULMONARY PROGRESS NOTES Vitals Vital Signs Date Time Temp Pulse Resp B/P (MAP) Pulse Ox O2 Delivery O2 Flow Rate FiO2 01/03/17 15:15 94 Nasal Cannula 2.0 01/03/17 15:00 72 16 109/76 (87) 01/03/17 12:00 98.1 98.1 Labs Laboratory Tests Test 01/02/17 23:35 01/03/17 01:08 01/03/17 07:45 01/03/17 07:48 White Blood Count 14.9 x10^3/uL (4.0-11.0) Red Blood Count 4.84 x10^6/uL (3.50-5.40) Hemoglobin 14.6 g/dL (12.0-15.5) Hematocrit 43.5 % (36.0-47.0) Mean Corpuscular Volume 90 fL (79-100) Mean Corpuscular Hemoglobin 30 pg (25-35) Mean Corpuscular Hemoglobin Concent 34 g/dL (31-37) Red Cell Distribution Width 14.1 % (11.5-14.5) Platelet Count 250 x10^3/uL (140-400) Neutrophils (%) (Auto) 58 % (31-73) Lymphocytes (%) (Auto) 34 % (24-48) Monocytes (%) (Auto) 6 % (0-9) Eosinophils (%) (Auto) 1 % (0-3) Basophils (%) (Auto) 1 % (0-3) Neutrophils # (Auto) 8.7 x10^3uL (1.8-7.7) Lymphocytes # (Auto) 5.1 x10^3/uL (1.0-4.8) Monocytes # (Auto) 0.8 x10^3/uL (0.0-1.1) Eosinophils # (Auto) 0.2 x10^3/uL (0.0-0.7) Basophils # (Auto) 0.1 x10^3/uL (0.0-0.2) Sodium Level 143 mmol/L (136-145) Potassium Level 4.2 mmol/L (3.5-5.1) Chloride Level 104 mmol/L (98-107) Carbon Dioxide Level 35 mmol/L (21-32) Anion Gap 4 (6-14) Blood Urea Nitrogen 17 mg/dL (7-20) Creatinine 0.7 mg/dL (0.6-1.0) Estimated GFR (Cockcroft-Gault) 89.3 BUN/Creatinine Ratio 24 (6-20) Glucose Level 100 mg/dL (70-99) Calcium Level 8.8 mg/dL (8.5-10.1) Total Bilirubin 0.2 mg/dL (0.2-1.0) Aspartate Amino Transf (AST/SGOT) 8 U/L (15-37) Alanine Aminotransferase (ALT/SGPT) 19 U/L (14-59) Alkaline Phosphatase 77 U/L (46-116) Troponin I Quantitative < 0.017 ng/mL (0.000-0.055) Total Protein 7.4 g/dL (6.4-8.2) Albumin 3.8 g/dL (3.4-5.0) Albumin/Globulin Ratio 1.1 (1.0-1.7) O2 Saturation 95 % (92-99) 94 % (92-99) Arterial Blood pH 7.31 (7.35-7.45) 7.33 (7.35-7.45) Arterial Blood pCO2 at Patient Temp 57 mmHg (35-46) 60 mmHg (35-46) Arterial Blood pO2 at Patient Temp 86 mmHg (75-108) 72 mmHg (75-108) Arterial Blood HCO3 28 mmol/L (21-28) 31 mmol/L (21-28) Arterial Blood Base Excess 1 mmol/L (-3-3) 3 mmol/L (-3-3) FiO2 32 36 Prothrombin Time 13.0 SEC (11.7-14.0) Prothromb Time International Ratio 1.0 (0.8-1.1) Heparin Anti-Xa Act, Unfractionated 0.88 IU/mL (0.30-0.70) Test 01/03/17 15:05 Heparin Anti-Xa Act, Unfractionated 0.46 IU/mL (0.30-0.70) Laboratory Tests Test 01/02/17 23:35 01/03/17 01:08 01/03/17 07:45 01/03/17 07:48 White Blood Count 14.9 x10^3/uL (4.0-11.0) Red Blood Count 4.84 x10^6/uL (3.50-5.40) Hemoglobin 14.6 g/dL (12.0-15.5) Hematocrit 43.5 % (36.0-47.0) Mean Corpuscular Volume 90 fL (79-100) Mean Corpuscular Hemoglobin 30 pg (25-35) Mean Corpuscular Hemoglobin Concent 34 g/dL (31-37) Red Cell Distribution Width 14.1 % (11.5-14.5) Platelet Count 250 x10^3/uL (140-400) Neutrophils (%) (Auto) 58 % (31-73) Lymphocytes (%) (Auto) 34 % (24-48) Monocytes (%) (Auto) 6 % (0-9) Eosinophils (%) (Auto) 1 % (0-3) Basophils (%) (Auto) 1 % (0-3) Neutrophils # (Auto) 8.7 x10^3uL (1.8-7.7) Lymphocytes # (Auto) 5.1 x10^3/uL (1.0-4.8) Monocytes # (Auto) 0.8 x10^3/uL (0.0-1.1) Eosinophils # (Auto) 0.2 x10^3/uL (0.0-0.7) Basophils # (Auto) 0.1 x10^3/uL (0.0-0.2) Sodium Level 143 mmol/L (136-145) Potassium Level 4.2 mmol/L (3.5-5.1) Chloride Level 104 mmol/L (98-107) Carbon Dioxide Level 35 mmol/L (21-32) Anion Gap 4 (6-14) Blood Urea Nitrogen 17 mg/dL (7-20) Creatinine 0.7 mg/dL (0.6-1.0) Estimated GFR (Cockcroft-Gault) 89.3 BUN/Creatinine Ratio 24 (6-20) Glucose Level 100 mg/dL (70-99) Calcium Level 8.8 mg/dL (8.5-10.1) Total Bilirubin 0.2 mg/dL (0.2-1.0) Aspartate Amino Transf (AST/SGOT) 8 U/L (15-37) Alanine Aminotransferase (ALT/SGPT) 19 U/L (14-59) Alkaline Phosphatase 77 U/L (46-116) Troponin I Quantitative < 0.017 ng/mL (0.000-0.055) Total Protein 7.4 g/dL (6.4-8.2) Albumin 3.8 g/dL (3.4-5.0) Albumin/Globulin Ratio 1.1 (1.0-1.7) O2 Saturation 95 % (92-99) 94 % (92-99) Arterial Blood pH 7.31 (7.35-7.45) 7.33 (7.35-7.45) Arterial Blood pCO2 at Patient Temp 57 mmHg (35-46) 60 mmHg (35-46) Arterial Blood pO2 at Patient Temp 86 mmHg (75-108) 72 mmHg (75-108) Arterial Blood HCO3 28 mmol/L (21-28) 31 mmol/L (21-28) Arterial Blood Base Excess 1 mmol/L (-3-3) 3 mmol/L (-3-3) FiO2 32 36 Prothrombin Time 13.0 SEC (11.7-14.0) Prothromb Time International Ratio 1.0 (0.8-1.1) Heparin Anti-Xa Act, Unfractionated 0.88 IU/mL (0.30-0.70) Test 01/03/17 15:05 Heparin Anti-Xa Act, Unfractionated 0.46 IU/mL (0.30-0.70) Medications Active Scripts Medications Dose Route/Sig Max Daily Dose Days Date Category [amlododipine] 01/03/17 Reported Lovastatin 20 Mg Tablet 20 Mg PO HS 01/03/17 Reported Lisinopril 20 Mg Tablet 20 Mg PO DAILY 01/03/17 Reported Prednisone 10 Mg Tablet 10 Mg PO DAILY 01/03/17 Reported [place] 5-325 Tablet (Acetaminophen/Hydrocodone Bitart) 1 Each Tablet 1-2 Tab PO Q4-6HRS 04/29/16 Rx Albuterol Sulfate Neb Soln (Albuterol Sulfate) 2.5 Mg/3 Ml Vial.neb 2.5 Mg NEB BID 05/11/15 Reported Impression . ACUTE HYPERCAPNIA RESP FAILURE AECOPD SPOKE WITH RADIOLOGIST THIN CUT THRU CT HELPED THROMBUS IS PRESENT WILL CHECK VENOUS DOPPLER WILL CONTINUE ANTICOAGULATION RANI KAUR MD Jan 03, 2017 15:55
[2017-01-03] MEDS ORDERED: WARFARIN 7.5 MG TABLET. PO ONE (16:00)
[2017-01-03] MEDS ORDERED: PHENOL ORAL SPRAY 177ML BOTTLE. PO PRN (16:15)
[2017-01-03] MEDS ORDERED: predniSONE 10 MG TABLET PO ONE (17:00)
[2017-01-03] MEDS: BUDESONIDE 0.5 MG/2 ML NEBU. NEB SCH (20:00)
[2017-01-03] MEDS: ATORVASTATIN CALCIUM 10 MG TABLET. PO SCH (20:11)
--- NOTE | 2017-01-03 22:34 | CONS ---
DATE OF CONSULTATION: 01/03/2017 ATTENDING PHYSICIAN: Dr. Comer. DICTATING PHYSICIAN: Dr. Kaur. REASON FOR CONSULTATION: The patient is seen in pulmonary consultation at the request of Dr. Comer for acute hypercapnic respiratory failure. HISTORY OF PRESENT ILLNESS: The patient is a 46-year-old female with underlying COPD experiences acute exacerbation of COPD 2-3 times a year, presented with increasing shortness of breath over the last 2-3 days. Cough mostly nonproductive. She can get a breath ____. She denied fever, chills or night sweats. Arterial blood gas revealed a pH of 7.33, PaCO2 of 60, pO2 of 72. The patient was seen in the Emergency Room yesterday, underwent CT angiogram. I personally reviewed the CT. I am not convinced that there is a thrombus in the left lower lobe branch. The case was likewise discussed with the radiologist who will be doing something ____. The patient has never had any difficulty with thrombophilia in the past. She denies any acute onset of shortness of breath associated with syncope, pleurisy. No lower extremity edema. No lower extremity redness. PAST MEDICAL HISTORY: Hypertension, COPD, tobacco dependent, gastroesophageal reflux, osteoarthritis, spinal stenosis, anxiety, depression. PAST SURGICAL HISTORY: No recent major surgeries. ALLERGIES: No known drug allergies. FAMILY HISTORY: No family history of thrombophilia or lung cancer remarkable for coronary artery disease, hypertension, kidney disease. SOCIAL HISTORY: She continues to smoke, is currently unemployed. PHYSICAL EXAMINATION: VITAL SIGNS: Stable. O2 saturation was greater than 92%. HEENT: Eyes, the sclerae were nonicteric. NECK: Jugular venous distention was not elevated. No lymphadenopathy. CHEST: Full expansion. LUNGS: Adequate airway flow, no wheezes. CARDIOVASCULAR: Regular rate and rhythm with S1, S2, no S3. ABDOMEN: Soft, obese. EXTREMITIES: No clubbing, cyanosis or pitting edema. NEUROLOGIC: The patient was awake, alert and following commands. A detailed neuro exam was not performed. CT angiogram was reviewed as indicated above, LABORATORY DATA: Reviewed. Elevated hemoglobin and hematocrit were noted. Electrolytes were noted. BUN and creatinine were noted. IMPRESSION: 1. Acute hypercapnic respiratory failure secondary to acute exacerbation of chronic obstructive pulmonary disease. 2. Abnormal CT of the chest with questionable thrombus in the left lower lobe artery, I reviewed it, I am not convinced that there is a thrombus steroids. I discussed with the radiologist who will be performing thin cuts in the interim, I will be obtaining venous Dopplers of lower extremities. My clinical suspicion for PE is close to 0. 3. Acute exacerbation of chronic obstructive pulmonary disease. 4. Tobacco dependent. 5. Obesity. 6. Depression. 7. Hypertension. PLAN: 1. Recommend continue oxygen supplementation. Decrease O2 to nasal cannula 2 liters. 2. Continue nebulized treatments and steroids. 3. No need for antibiotics. 4. The patient instructed on the importance of discontinuing tobacco use. 5. Venous Dopplers of lower extremities. I do appreciate the privilege in sharing in the patient's care. RANI KAUR MD DR: DORA/alcira JOB#: [id number] / [id number]
--- NOTE | 2017-01-04 00:52 | ACF ---
Admission Forms Criteria COPD Clinical Indications for Admission to Inpatient Care (Place 'X' for any and all applicable criteria): Admission is indicated for ANY ONE of the following (1)(2)(3): [X]I. Acute exacerbation by high-risk comorbidity (e.g., pneumonia, dysrhythmia, heart failure, pleural effusion, pneumothorax) or severe underlying COPD (e.g., steroid dependent) [ ]II. Inpatient admission required rather than observation care (see Chronic Obstructive Pulmonary Disease: Observation Care) because of ANY ONE of the following: [ ]a) New or pre-existing signs or symptoms of COPD (eg, dyspnea or Tachypnea at rest or with minimal activity) that persist despite outpatient and observation care treatment [ ]b) New-onset hypoxemia (room air SaO2 less than 90%, PO2 less than 60 mm Hg (8.0 kPa)) that persists despite outpatient and observation care treatment [ ]c) Worsening of pre-existing hypoxemia (eg, new or increased requirement for supplemental oxygen to maintain oxygenation at baseline level) that persists despite outpatient and observation care treatment, with oxygen treatment needs performable only in acute inpatient setting [ ]d) Hypercarbia (PCO2 greater than 40 mm Hg (5.3 kPa))-induced respiratory acidosis (pH less than 7.35) that persists despite outpatient and observation care treatment [ ]e) Supplemental oxygen or respiratory treatments for over 24 hours that are performable only in acute inpatient setting [ ]f) Chest tube placement with active evacuation (e.g., suction, drainage) (5) [ ]g) Other condition, treatment or monitoring requiring inpatient admission [ ]III. Planned invasive surgical or diagnostic procedures requiring acute- care hospitalization [ ]IV. Acute respiratory failure (e.g., uncompensated hypercarbia, severe hypoxemia) [ ]V. Severe comorbid condition (e.g., severe steroid myopathy, acute vertebral fracture) that has acutely worsened pulmonary function [ ]. Confusion state, lethargy, obtundation, stupor or coma Extended stay beyond goal length of stay may be needed for (31)(32): [ ]a ) Respiratory Failure. [ ]b) Severe or persisting hypoxemia or hypercarbia [ ]c) Severe or persistent dyspnea [ ]d) Comorbidities (e.g. chronic heart failure, atrial fibrillation with rapid response, pneumonia) [ ]e) Malnutrition The original [facility] content created by [facility] has been revised. The portions of the content which have been revised are identified through the use of italic text or in bold, and [facility] has neither reviewed nor approved the modified material. All other unmodified content is copyright [facility]. Please see references footnoted in the original [facility] edition 2016 Admission Criteria Met?: Yes LALO ORTIZ Jan 04, 2017 00:52
[2017-01-04 04:00] VITALS: BP 105/65
[2017-01-04 05:31] LABS: BASO % 0 % (0-3); EOS % 0 % (0-3); LYMPH # 1.3 x10^3/uL (1.0-4.8); LYMPH % 7 % (24-48); MEAN CORPUSCULAR HEMOGLOBIN 30 pg (25-35); MEAN CORPUSCULAR HGB CONC 34 g/dL (31-37); MEAN CORPUSCULAR VOLUME 89 fL (79-100); MONO % 3 % (0-9); NEUT % 90 % (31-73); PLATELET COUNT 238 x10^3/uL (140-400); RED CELL DISTRIBUTION WIDTH 13.6 % (11.5-14.5)
[2017-01-04 06:01] LABS: CALCIUM 9.1 mg/dL (8.5-10.1); CREATININE 0.6 mg/dL (0.6-1.0); GFR 106.7; POTASSIUM 4.6 mmol/L (3.5-5.1); PROTHROMBIN TIME PATIENT 12.1 SEC (11.7-14.0)
--- NOTE | 2017-01-04 06:36 | PDOC ---
PULMONARY PROGRESS NOTES Subjective PT SEEN EARLIER THIS AM NO RESP COMPLAINTS Vitals Vital Signs Date Time Temp Pulse Resp B/P (MAP) Pulse Ox O2 Delivery O2 Flow Rate FiO2 01/04/17 04:00 98.6 69 16 105/65 (78) 97 Nasal Cannula 2.0 98.6 ROS: No Nausea, No Chest Pain, No Increase Cough General: Alert Lungs: Clear Cardiovascular: S1, S2 Abdomen: Soft Neuro Exam: Alert, Oriented Extremities: No Edema Skin: Warm Labs Laboratory Tests Test 01/02/17 23:35 01/03/17 01:08 01/03/17 07:45 01/03/17 07:48 White Blood Count 14.9 x10^3/uL (4.0-11.0) Red Blood Count 4.84 x10^6/uL (3.50-5.40) Hemoglobin 14.6 g/dL (12.0-15.5) Hematocrit 43.5 % (36.0-47.0) Mean Corpuscular Volume 90 fL (79-100) Mean Corpuscular Hemoglobin 30 pg (25-35) Mean Corpuscular Hemoglobin Concent 34 g/dL (31-37) Red Cell Distribution Width 14.1 % (11.5-14.5) Platelet Count 250 x10^3/uL (140-400) Neutrophils (%) (Auto) 58 % (31-73) Lymphocytes (%) (Auto) 34 % (24-48) Monocytes (%) (Auto) 6 % (0-9) Eosinophils (%) (Auto) 1 % (0-3) Basophils (%) (Auto) 1 % (0-3) Neutrophils # (Auto) 8.7 x10^3uL (1.8-7.7) Lymphocytes # (Auto) 5.1 x10^3/uL (1.0-4.8) Monocytes # (Auto) 0.8 x10^3/uL (0.0-1.1) Eosinophils # (Auto) 0.2 x10^3/uL (0.0-0.7) Basophils # (Auto) 0.1 x10^3/uL (0.0-0.2) Sodium Level 143 mmol/L (136-145) Potassium Level 4.2 mmol/L (3.5-5.1) Chloride Level 104 mmol/L (98-107) Carbon Dioxide Level 35 mmol/L (21-32) Anion Gap 4 (6-14) Blood Urea Nitrogen 17 mg/dL (7-20) Creatinine 0.7 mg/dL (0.6-1.0) Estimated GFR (Cockcroft-Gault) 89.3 BUN/Creatinine Ratio 24 (6-20) Glucose Level 100 mg/dL (70-99) Calcium Level 8.8 mg/dL (8.5-10.1) Total Bilirubin 0.2 mg/dL (0.2-1.0) Aspartate Amino Transf (AST/SGOT) 8 U/L (15-37) Alanine Aminotransferase (ALT/SGPT) 19 U/L (14-59) Alkaline Phosphatase 77 U/L (46-116) Troponin I Quantitative < 0.017 ng/mL (0.000-0.055) Total Protein 7.4 g/dL (6.4-8.2) Albumin 3.8 g/dL (3.4-5.0) Albumin/Globulin Ratio 1.1 (1.0-1.7) O2 Saturation 95 % (92-99) 94 % (92-99) Arterial Blood pH 7.31 (7.35-7.45) 7.33 (7.35-7.45) Arterial Blood pCO2 at Patient Temp 57 mmHg (35-46) 60 mmHg (35-46) Arterial Blood pO2 at Patient Temp 86 mmHg (75-108) 72 mmHg (75-108) Arterial Blood HCO3 28 mmol/L (21-28) 31 mmol/L (21-28) Arterial Blood Base Excess 1 mmol/L (-3-3) 3 mmol/L (-3-3) FiO2 32 36 Prothrombin Time 13.0 SEC (11.7-14.0) Prothromb Time International Ratio 1.0 (0.8-1.1) Heparin Anti-Xa Act, Unfractionated 0.88 IU/mL (0.30-0.70) Test 01/03/17 09:40 01/03/17 15:05 01/03/17 21:20 01/04/17 05:00 Nasal Screen MRSA (PCR) Negative (Negative) Heparin Anti-Xa Act, Unfractionated 0.46 IU/mL (0.30-0.70) 0.42 IU/mL (0.30-0.70) 0.50 IU/mL (0.30-0.70) White Blood Count 19.0 x10^3/uL (4.0-11.0) Red Blood Count 4.60 x10^6/uL (3.50-5.40) Hemoglobin 14.0 g/dL (12.0-15.5) Hematocrit 41.0 % (36.0-47.0) Mean Corpuscular Volume 89 fL (79-100) Mean Corpuscular Hemoglobin 30 pg (25-35) Mean Corpuscular Hemoglobin Concent 34 g/dL (31-37) Red Cell Distribution Width 13.6 % (11.5-14.5) Platelet Count 238 x10^3/uL (140-400) Neutrophils (%) (Auto) 90 % (31-73) Lymphocytes (%) (Auto) 7 % (24-48) Monocytes (%) (Auto) 3 % (0-9) Eosinophils (%) (Auto) 0 % (0-3) Basophils (%) (Auto) 0 % (0-3) Neutrophils # (Auto) 17.1 x10^3uL (1.8-7.7) Lymphocytes # (Auto) 1.3 x10^3/uL (1.0-4.8) Monocytes # (Auto) 0.5 x10^3/uL (0.0-1.1) Eosinophils # (Auto) 0.0 x10^3/uL (0.0-0.7) Basophils # (Auto) 0.0 x10^3/uL (0.0-0.2) Prothrombin Time 12.1 SEC (11.7-14.0) Prothromb Time International Ratio 1.0 (0.8-1.1) Sodium Level 142 mmol/L (136-145) Potassium Level 4.6 mmol/L (3.5-5.1) Chloride Level 102 mmol/L (98-107) Carbon Dioxide Level 36 mmol/L (21-32) Anion Gap 4 (6-14) Blood Urea Nitrogen 15 mg/dL (7-20) Creatinine 0.6 mg/dL (0.6-1.0) Estimated GFR (Cockcroft-Gault) 106.7 Glucose Level 142 mg/dL (70-99) Calcium Level 9.1 mg/dL (8.5-10.1) Laboratory Tests Test 01/03/17 07:45 01/03/17 07:48 01/03/17 09:40 01/03/17 15:05 O2 Saturation 94 % (92-99) Arterial Blood pH 7.33 (7.35-7.45) Arterial Blood pCO2 at Patient Temp 60 mmHg (35-46) Arterial Blood pO2 at Patient Temp 72 mmHg (75-108) Arterial Blood HCO3 31 mmol/L (21-28) Arterial Blood Base Excess 3 mmol/L (-3-3) FiO2 36 Prothrombin Time 13.0 SEC (11.7-14.0) Prothromb Time International Ratio 1.0 (0.8-1.1) Heparin Anti-Xa Act, Unfractionated 0.88 IU/mL (0.30-0.70) 0.46 IU/mL (0.30-0.70) Nasal Screen MRSA (PCR) Negative (Negative) Test 01/03/17 21:20 01/04/17 05:00 Heparin Anti-Xa Act, Unfractionated 0.42 IU/mL (0.30-0.70) 0.50 IU/mL (0.30-0.70) White Blood Count 19.0 x10^3/uL (4.0-11.0) Red Blood Count 4.60 x10^6/uL (3.50-5.40) Hemoglobin 14.0 g/dL (12.0-15.5) Hematocrit 41.0 % (36.0-47.0) Mean Corpuscular Volume 89 fL (79-100) Mean Corpuscular Hemoglobin 30 pg (25-35) Mean Corpuscular Hemoglobin Concent 34 g/dL (31-37) Red Cell Distribution Width 13.6 % (11.5-14.5) Platelet Count 238 x10^3/uL (140-400) Neutrophils (%) (Auto) 90 % (31-73) Lymphocytes (%) (Auto) 7 % (24-48) Monocytes (%) (Auto) 3 % (0-9) Eosinophils (%) (Auto) 0 % (0-3) Basophils (%) (Auto) 0 % (0-3) Neutrophils # (Auto) 17.1 x10^3uL (1.8-7.7) Lymphocytes # (Auto) 1.3 x10^3/uL (1.0-4.8) Monocytes # (Auto) 0.5 x10^3/uL (0.0-1.1) Eosinophils # (Auto) 0.0 x10^3/uL (0.0-0.7) Basophils # (Auto) 0.0 x10^3/uL (0.0-0.2) Prothrombin Time 12.1 SEC (11.7-14.0) Prothromb Time International Ratio 1.0 (0.8-1.1) Sodium Level 142 mmol/L (136-145) Potassium Level 4.6 mmol/L (3.5-5.1) Chloride Level 102 mmol/L (98-107) Carbon Dioxide Level 36 mmol/L (21-32) Anion Gap 4 (6-14) Blood Urea Nitrogen 15 mg/dL (7-20) Creatinine 0.6 mg/dL (0.6-1.0) Estimated GFR (Cockcroft-Gault) 106.7 Glucose Level 142 mg/dL (70-99) Calcium Level 9.1 mg/dL (8.5-10.1) Medications Active Scripts Medications Dose Route/Sig Max Daily Dose Days Date Category [amlododipine] 01/03/17 Reported Lovastatin 20 Mg Tablet 20 Mg PO HS 01/03/17 Reported Lisinopril 20 Mg Tablet 20 Mg PO DAILY 01/03/17 Reported Prednisone 10 Mg Tablet 10 Mg PO DAILY 01/03/17 Reported [place] 5-325 Tablet (Acetaminophen/Hydrocodone Bitart) 1 Each Tablet 1-2 Tab PO Q4-6HRS 04/29/16 Rx Albuterol Sulfate Neb Soln (Albuterol Sulfate) 2.5 Mg/3 Ml Vial.neb 2.5 Mg NEB BID 05/11/15 Reported Impression . 1. Acute hypercapnic respiratory failure secondary to acute exacerbation of chronic obstructive pulmonary disease. 2. Abnormal CT of the chest with questionable thrombus in the left lower lobe artery 3. Acute exacerbation of chronic obstructive pulmonary disease. 4. Tobacco dependent. 5. Obesity. 6. Depression/Anxiety 7. Hypertension. Plan . SPOKE WITH RADIOLOGIST WE THINK IN RETROSPECT REVIEW THE THROMBUS IS REAL. PT NEEDS ANTICOAGULATION FOR 3 MONTHS VENOUS DOPPLER RESULTS PENDING RN CALLED ME PT WISHES TO LEAVE AMA SHE WILL NEED A RX FOR ELIQUIS I DO NOT RECOMMEND THAT SHE LEAVE, BUT THEN AGAIN WE CANNOT KEEP PT HER AGANIST HER WILL, SHE IS UNDERSTANDING OF THE SEVERITY OF SITUATION RANI KAUR MD Jan 04, 2017 06:36
[2017-01-04] MEDS: BUDESONIDE 0.5 MG/2 ML NEBU. NEB SCH ×2 (07:31→20:37)
[2017-01-04] MEDS: IPRATRPIUM/ALBUTEROL 0.5/2.5MG 3 ML NEBU. NEB SCH ×5 (07:31→20:37)
[2017-01-04 08:00] VITALS: BP 155/80
[2017-01-04] MEDS ORDERED: NICOTINE 21MG PATCH. TD PRN (09:00)
[2017-01-04] MEDS ORDERED: NICOTINE POLACRILEX 2MG GUM PACKAGE of 12. BC PRN (09:00)
[2017-01-04] MEDS: predniSONE 20 MG TABLET PO SCH (09:07)
[2017-01-04] MEDS: LISINOPRIL 20 MG TABLET PO SCH (09:08)
[2017-01-04 10:52] LABS: PLT ESTIMATE ADEQUATE (ADEQUATE)
[2017-01-04 11:00] VITALS: BP 130/49
[2017-01-04] MEDS: HEPARIN 25,000UTS/500ML PREMIX 500 ML IV PRN (11:01)
--- NOTE | 2017-01-04 11:20 | RAD ---
Indication shortness of air. Grayscale color Doppler and spectral imaging was performed. Examination was targeted to the veins of the lower extremities. Note is made of the CT examination earlier in the day suggesting the possibility of small embolus in the left lower lobe. The common femoral, femoral and popliteal vessels, bilaterally, appeared unremarkable. No thrombus is seen. The visualized calf veins, bilaterally, appeared unremarkable. IMPRESSION: Negative bilateral lower extremity venous analysis for DVT
[2017-01-04 16:00] VITALS: BP 109/74
[2017-01-04] MEDS ORDERED: WARFARIN 7.5 MG TABLET. PO ONE (16:00)
--- NOTE | 2017-01-04 16:05 | PDOC ---
PROGRESS NOTES Chief Complaint Chief Complaint acute hypoxic respiratory failure PE COPD, ae morbid obesity, BMI 41 tobaccoism ongoing anxiety d/o History of Present Illness History of Present Illness marked anxiety today, almost left AMA s/p nicotine patch and gum and IV ativan, much more calm , did sleep,. tearful and emotional and tangential for my visit, She is watching her grandchildren in her hospital room, kids ages 3 and 6 Vitals Vitals Vital Signs Date Time Temp Pulse Resp B/P (MAP) Pulse Ox O2 Delivery O2 Flow Rate FiO2 01/04/17 12:08 90 Nasal Cannula 2.0 01/04/17 11:00 98.7 93 19 130/49 (76) 98.7 Physical Exam General: Alert, Oriented X3, Cooperative, moderate distress Lungs: Clear Abdomen: Normal bowel sounds, Soft (obese) Extremities: No edema, Normal pulses Skin: No rashes Labs LABS Laboratory Tests Test 01/03/17 21:20 01/04/17 05:00 Heparin Anti-Xa Act, Unfractionated 0.42 IU/mL (0.30-0.70) 0.50 IU/mL (0.30-0.70) White Blood Count 19.0 x10^3/uL (4.0-11.0) Red Blood Count 4.60 x10^6/uL (3.50-5.40) Hemoglobin 14.0 g/dL (12.0-15.5) Hematocrit 41.0 % (36.0-47.0) Mean Corpuscular Volume 89 fL (79-100) Mean Corpuscular Hemoglobin 30 pg (25-35) Mean Corpuscular Hemoglobin Concent 34 g/dL (31-37) Red Cell Distribution Width 13.6 % (11.5-14.5) Platelet Count 238 x10^3/uL (140-400) Neutrophils (%) (Auto) 90 % (31-73) Lymphocytes (%) (Auto) 7 % (24-48) Monocytes (%) (Auto) 3 % (0-9) Eosinophils (%) (Auto) 0 % (0-3) Basophils (%) (Auto) 0 % (0-3) Neutrophils # (Auto) 17.1 x10^3uL (1.8-7.7) Lymphocytes # (Auto) 1.3 x10^3/uL (1.0-4.8) Monocytes # (Auto) 0.5 x10^3/uL (0.0-1.1) Eosinophils # (Auto) 0.0 x10^3/uL (0.0-0.7) Basophils # (Auto) 0.0 x10^3/uL (0.0-0.2) Segmented Neutrophils % 88 % (35-66) Band Neutrophils % 1 % (0-9) Lymphocytes % 10 % (24-48) Monocytes % 1 % (0-10) Platelet Estimate Adequate (ADEQUATE) Prothrombin Time 12.1 SEC (11.7-14.0) Prothromb Time International Ratio 1.0 (0.8-1.1) Sodium Level 142 mmol/L (136-145) Potassium Level 4.6 mmol/L (3.5-5.1) Chloride Level 102 mmol/L (98-107) Carbon Dioxide Level 36 mmol/L (21-32) Anion Gap 4 (6-14) Blood Urea Nitrogen 15 mg/dL (7-20) Creatinine 0.6 mg/dL (0.6-1.0) Estimated GFR (Cockcroft-Gault) 106.7 Glucose Level 142 mg/dL (70-99) Calcium Level 9.1 mg/dL (8.5-10.1) Review of Systems Review of Systems cough, dyspnjea, anxiety, insomina Assessment and Plan Assessmemt and Plan Problems Medical Problems: (1) COPD (chronic obstructive pulmonary disease) case managementpatient Status: Acute (2) Pulmonary embolus Status: Acute Problems: Comment Review of Relevant I have reviewed the following items keven (where applicable) has been applied. Labs Laboratory Tests Test 01/02/17 23:35 01/03/17 01:08 01/03/17 07:45 01/03/17 07:48 White Blood Count 14.9 x10^3/uL (4.0-11.0) Red Blood Count 4.84 x10^6/uL (3.50-5.40) Hemoglobin 14.6 g/dL (12.0-15.5) Hematocrit 43.5 % (36.0-47.0) Mean Corpuscular Volume 90 fL (79-100) Mean Corpuscular Hemoglobin 30 pg (25-35) Mean Corpuscular Hemoglobin Concent 34 g/dL (31-37) Red Cell Distribution Width 14.1 % (11.5-14.5) Platelet Count 250 x10^3/uL (140-400) Neutrophils (%) (Auto) 58 % (31-73) Lymphocytes (%) (Auto) 34 % (24-48) Monocytes (%) (Auto) 6 % (0-9) Eosinophils (%) (Auto) 1 % (0-3) Basophils (%) (Auto) 1 % (0-3) Neutrophils # (Auto) 8.7 x10^3uL (1.8-7.7) Lymphocytes # (Auto) 5.1 x10^3/uL (1.0-4.8) Monocytes # (Auto) 0.8 x10^3/uL (0.0-1.1) Eosinophils # (Auto) 0.2 x10^3/uL (0.0-0.7) Basophils # (Auto) 0.1 x10^3/uL (0.0-0.2) Sodium Level 143 mmol/L (136-145) Potassium Level 4.2 mmol/L (3.5-5.1) Chloride Level 104 mmol/L (98-107) Carbon Dioxide Level 35 mmol/L (21-32) Anion Gap 4 (6-14) Blood Urea Nitrogen 17 mg/dL (7-20) Creatinine 0.7 mg/dL (0.6-1.0) Estimated GFR (Cockcroft-Gault) 89.3 BUN/Creatinine Ratio 24 (6-20) Glucose Level 100 mg/dL (70-99) Calcium Level 8.8 mg/dL (8.5-10.1) Total Bilirubin 0.2 mg/dL (0.2-1.0) Aspartate Amino Transf (AST/SGOT) 8 U/L (15-37) Alanine Aminotransferase (ALT/SGPT) 19 U/L (14-59) Alkaline Phosphatase 77 U/L (46-116) Troponin I Quantitative < 0.017 ng/mL (0.000-0.055) Total Protein 7.4 g/dL (6.4-8.2) Albumin 3.8 g/dL (3.4-5.0) Albumin/Globulin Ratio 1.1 (1.0-1.7) O2 Saturation 95 % (92-99) 94 % (92-99) Arterial Blood pH 7.31 (7.35-7.45) 7.33 (7.35-7.45) Arterial Blood pCO2 at Patient Temp 57 mmHg (35-46) 60 mmHg (35-46) Arterial Blood pO2 at Patient Temp 86 mmHg (75-108) 72 mmHg (75-108) Arterial Blood HCO3 28 mmol/L (21-28) 31 mmol/L (21-28) Arterial Blood Base Excess 1 mmol/L (-3-3) 3 mmol/L (-3-3) FiO2 32 36 Prothrombin Time 13.0 SEC (11.7-14.0) Prothromb Time International Ratio 1.0 (0.8-1.1) Heparin Anti-Xa Act, Unfractionated 0.88 IU/mL (0.30-0.70) Test 01/03/17 09:40 01/03/17 15:05 01/03/17 21:20 01/04/17 05:00 Nasal Screen MRSA (PCR) Negative (Negative) Heparin Anti-Xa Act, Unfractionated 0.46 IU/mL (0.30-0.70) 0.42 IU/mL (0.30-0.70) 0.50 IU/mL (0.30-0.70) White Blood Count 19.0 x10^3/uL (4.0-11.0) Red Blood Count 4.60 x10^6/uL (3.50-5.40) Hemoglobin 14.0 g/dL (12.0-15.5) Hematocrit 41.0 % (36.0-47.0) Mean Corpuscular Volume 89 fL (79-100) Mean Corpuscular Hemoglobin 30 pg (25-35) Mean Corpuscular Hemoglobin Concent 34 g/dL (31-37) Red Cell Distribution Width 13.6 % (11.5-14.5) Platelet Count 238 x10^3/uL (140-400) Neutrophils (%) (Auto) 90 % (31-73) Lymphocytes (%) (Auto) 7 % (24-48) Monocytes (%) (Auto) 3 % (0-9) Eosinophils (%) (Auto) 0 % (0-3) Basophils (%) (Auto) 0 % (0-3) Neutrophils # (Auto) 17.1 x10^3uL (1.8-7.7) Lymphocytes # (Auto) 1.3 x10^3/uL (1.0-4.8) Monocytes # (Auto) 0.5 x10^3/uL (0.0-1.1) Eosinophils # (Auto) 0.0 x10^3/uL (0.0-0.7) Basophils # (Auto) 0.0 x10^3/uL (0.0-0.2) Segmented Neutrophils % 88 % (35-66) Band Neutrophils % 1 % (0-9) Lymphocytes % 10 % (24-48) Monocytes % 1 % (0-10) Platelet Estimate Adequate (ADEQUATE) Prothrombin Time 12.1 SEC (11.7-14.0) Prothromb Time International Ratio 1.0 (0.8-1.1) Sodium Level 142 mmol/L (136-145) Potassium Level 4.6 mmol/L (3.5-5.1) Chloride Level 102 mmol/L (98-107) Carbon Dioxide Level 36 mmol/L (21-32) Anion Gap 4 (6-14) Blood Urea Nitrogen 15 mg/dL (7-20) Creatinine 0.6 mg/dL (0.6-1.0) Estimated GFR (Cockcroft-Gault) 106.7 Glucose Level 142 mg/dL (70-99) Calcium Level 9.1 mg/dL (8.5-10.1) Laboratory Tests Test 01/03/17 21:20 01/04/17 05:00 Heparin Anti-Xa Act, Unfractionated 0.42 IU/mL (0.30-0.70) 0.50 IU/mL (0.30-0.70) White Blood Count 19.0 x10^3/uL (4.0-11.0) Red Blood Count 4.60 x10^6/uL (3.50-5.40) Hemoglobin 14.0 g/dL (12.0-15.5) Hematocrit 41.0 % (36.0-47.0) Mean Corpuscular Volume 89 fL (79-100) Mean Corpuscular Hemoglobin 30 pg (25-35) Mean Corpuscular Hemoglobin Concent 34 g/dL (31-37) Red Cell Distribution Width 13.6 % (11.5-14.5) Platelet Count 238 x10^3/uL (140-400) Neutrophils (%) (Auto) 90 % (31-73) Lymphocytes (%) (Auto) 7 % (24-48) Monocytes (%) (Auto) 3 % (0-9) Eosinophils (%) (Auto) 0 % (0-3) Basophils (%) (Auto) 0 % (0-3) Neutrophils # (Auto) 17.1 x10^3uL (1.8-7.7) Lymphocytes # (Auto) 1.3 x10^3/uL (1.0-4.8) Monocytes # (Auto) 0.5 x10^3/uL (0.0-1.1) Eosinophils # (Auto) 0.0 x10^3/uL (0.0-0.7) Basophils # (Auto) 0.0 x10^3/uL (0.0-0.2) Segmented Neutrophils % 88 % (35-66) Band Neutrophils % 1 % (0-9) Lymphocytes % 10 % (24-48) Monocytes % 1 % (0-10) Platelet Estimate Adequate (ADEQUATE) Prothrombin Time 12.1 SEC (11.7-14.0) Prothromb Time International Ratio 1.0 (0.8-1.1) Sodium Level 142 mmol/L (136-145) Potassium Level 4.6 mmol/L (3.5-5.1) Chloride Level 102 mmol/L (98-107) Carbon Dioxide Level 36 mmol/L (21-32) Anion Gap 4 (6-14) Blood Urea Nitrogen 15 mg/dL (7-20) Creatinine 0.6 mg/dL (0.6-1.0) Estimated GFR (Cockcroft-Gault) 106.7 Glucose Level 142 mg/dL (70-99) Calcium Level 9.1 mg/dL (8.5-10.1) Medications Current Medications Albuterol/ Ipratropium (Duoneb) 3 ml 1X ONCE NEB Last administered on 23:52; Start 01/02/17 at 23:45; Stop 01/02/17 at 23:46; Status DC Dexamethasone Sodium Phosphate (Decadron) 10 mg 1X ONCE IV Last administered on 01/02/17 23:40; Start 01/02/17 at 23:45; Stop 01/02/17 at 23:46; Status DC Ondansetron HCl (Zofran) 4 mg 1X ONCE IV Last administered on 01/02/17 23:40; Start 01/02/17 at 23:45; Stop 01/02/17 at 23:46; Status DC Fentanyl Citrate (Fentanyl 2ml Vial) 50 mcg 1X ONCE IV Last administered on 00:24; Start 01/03/17 at 00:15; Stop 01/03/17 at 00:16; Status DC Iohexol (Omnipaque 300 Mg/ml) 75 ml 1X ONCE IV Last administered on 01/03/17 00:44; Start 01/03/17 at 00:30; Stop 01/03/17 at 00:31; Status DC Info (Do NOT chart on this entry -- for MONITORING) 1 each PRN DAILY PRN MC SEE COMMENTS; Start 01/03/17 at 00:15; Stop 01/05/17 at 00:14 Heparin Sodium (Porcine) (Heparin Sodium) 8,000 unit 1X ONCE IV Last administered on 01/03/17 01:45; Start 01/03/17 at 02:00; Stop 01/03/17 at 02:01; Status DC Heparin Sodium/ Dextrose 500 ml @ 0 mls/hr CONT PRN IV SEE I/O RECORD Last administered on 01/04/17 11:01; Start 01/03/17 at 01:30 Heparin Sodium (Porcine) (Heparin Sodium) 3,000 unit PRN Q6HRS PRN IV FOR UFH LEVEL LESS THAN 0.2; Start 01/03/17 at 01:30 Heparin Sodium (Porcine) (Heparin Sodium) 1,500 unit PRN Q6HRS PRN IV FOR UFH LEVEL 0.2 - 0.29; Start 01/03/17 at 01:30 Warfarin Sodium (Coumadin Per Pharmacy) 1 each PRN DAILY PRN MC PER PROTOCOL Last administered on 01/04/17 13:12; Start 01/03/17 at 01:30 Ondansetron HCl (Zofran) 4 mg PRN Q8HRS PRN IV NAUSEA/VOMITING Last administered on 01/04/17 01:28; Start 01/03/17 at 01:30; Stop 01/04/17 at 01:29; Status DC Morphine Sulfate 4 mg PRN Q2HR PRN IV SEVERE PAIN Last administered on 10:57; Start 01/03/17 at 01:30; Stop 01/04/17 at 01:29; Status DC Acetaminophen (Tylenol) 650 mg PRN Q4HRS PRN PO FEVER; Start 01/03/17 at 01:30; Stop 01/04/17 at 01:29; Status DC Info (Anti-Coagulation Monitoring By Pharmacy) 1 each PRN DAILY PRN MC SEE COMMENTS Last administered on 01/03/17 03:42; Start 01/03/17 at 01:30 Lorazepam (Ativan) 1 mg 1X ONCE IV Last administered on 01/03/17 01:52; Start 01/03/17 at 02:00; Stop 01/03/17 at 02:01; Status DC Albuterol/ Ipratropium (Duoneb) 3 ml Q4HRS W/A NEB Last administered on 12:07; Start 01/03/17 at 10:00 Budesonide (Pulmicort) 0.5 mg RTBID NEB Last administered on 01/04/17 07:31; Start 01/03/17 at 20:00 Budesonide (Pulmicort) 0.5 mg 1X ONCE NEB Last administered on 01/03/17 09:07 ; Start 01/03/17 at 09:30; Stop 01/03/17 at 09:31; Status DC Acetaminophen/ Hydrocodone Bitart (L[place] 5/325) 1 tab PRN Q4HRS PRN PO pain Last administered on 01/03/17 20:11; Start 01/03/17 at 09:00 Lisinopril (Prinivil) 20 mg DAILY PO Last administered on 01/04/17 09:08; Start 01/03/17 at 09:30 Atorvastatin Calcium (Lipitor) 5 mg QHS PO Last administered on 01/03/17 20:11 ; Start 01/03/17 at 21:00 Prednisone (Prednisone) 10 mg DAILY PO ; Start 01/03/17 at 09:00; Stop 01/03/17 at 09:06; Status DC Prednisone (Prednisone) 50 mg 1X ONCE PO ; Start 01/03/17 at 09:30; Stop at 09:31; Status Cancel Prednisone (Prednisone) 20 mg DAILY PO Last administered on 01/04/17 09:07; Start 01/04/17 at 09:00 Prednisone (Prednisone) 50 mg 1X ONCE PO Last administered on 01/03/17 16:56; Start 01/03/17 at 17:00; Stop 01/03/17 at 17:01; Status DC Warfarin Sodium (Coumadin) 7.5 mg 1X WARF ONCE PO Last administered on 15:50; Start 01/03/17 at 16:00; Stop 01/03/17 at 16:00; Status DC Throat Lozenges (Chloraseptic) 1 spray PRN Q2HR PRN PO SORE THROAT Last administered on 01/03/17 16:56; Start 01/03/17 at 16:15 Warfarin Sodium (Coumadin Per Pharmacy) 1 each PRN DAILY PRN MC SEE COMMENTS; Start 01/03/17 at 18:15; Status UNV Nicotine (Nicoderm Cq 21mg) 1 patch PRN DAILY PRN TD SMOKING CESSATION Last administered on 01/04/17 09:08; Start 01/04/17 at 09:00 Nicotine Polacrilex (Nicorette Gum) 1 each PRN Q1HR PRN BC SMOKING CESSATION; Start 01/04/17 at 09:00 Lorazepam (Ativan) 2 mg PRN Q4HRS PRN IV ANXIETY / AGITATION Last administered on 01/04/17 09:08; Start 01/04/17 at 09:00 Warfarin Sodium (Coumadin) 7.5 mg 1X WARF ONCE PO ; Start 01/04/17 at 16:00; Stop 01/04/17 at 16:01; Status DC Active Scripts Active [place] 5-325 Tablet (Acetaminophen/Hydrocodone Bitart) 1 Each Tablet 1-2 Tab PO Q4-6HRS Reported [amlododipine] Lovastatin 20 Mg Tablet 20 Mg PO HS Lisinopril 20 Mg Tablet 20 Mg PO DAILY Prednisone 10 Mg Tablet 10 Mg PO DAILY Albuterol Sulfate Neb Soln (Albuterol Sulfate) 2.5 Mg/3 Ml Vial.neb 2.5 Mg NEB BID Vitals/I & O Vital Sign - Last 24 Hours 01/03/17 01/03/17 01/03/17 01/03/17 17:00 18:00 19:00 19:30 Temp 98.0 98.0 Pulse 85 88 81 Resp 21 24 24 B/P (MAP) 120/78 (92) 90/47 (61) 119/72 (88) Pulse Ox 95 94 94 O2 Delivery Nasal Cannula Nasal Cannula Nasal Cannula Nasal Cannula O2 Flow Rate 2.0 2.0 2.0 2.0 01/03/17 01/03/17 01/03/17 01/04/17 20:00 20:11 21:11 00:00 Pulse 62 Resp 22 22 Pulse Ox 99 95 96 O2 Delivery Nasal Cannula Nasal Cannula Nasal Cannula Nasal Cannula O2 Flow Rate 2.0 2.0 2.0 2.0 01/04/17 01/04/17 01/04/17 01/04/17 04:00 07:31 07:52 08:00 Temp 98.6 98.1 98.6 98.1 Pulse 69 68 Resp 16 19 B/P (MAP) 105/65 (78) 155/80 (105) Pulse Ox 97 95 91 O2 Delivery Nasal Cannula Nasal Cannula Nasal Cannula Room Air O2 Flow Rate 2.0 2.0 2.0 01/04/17 01/04/17 01/04/17 09:08 11:00 12:08 Temp 98.7 98.7 Pulse 68 93 Resp 19 B/P (MAP) 155/80 130/49 (76) Pulse Ox 94 90 O2 Delivery Nasal Cannula Nasal Cannula O2 Flow Rate 2.0 Intake and Output 01/03/17 01/03/17 01/04/17 15:00 23:00 07:00 Intake Total 390 ml 649 ml 200 ml Output Total 300 ml 150 ml Balance 90 ml 499 ml 200 ml TRELL MORALES MD Jan 04, 2017 16:05
[2017-01-04] MEDS: HYDROcodone/APAP 5/325MG 1 TAB TABLET PO PRN (16:37)
[2017-01-04 20:22] VITALS: BP 119/68
[2017-01-04] MEDS: ATORVASTATIN CALCIUM 10 MG TABLET. PO SCH (21:54)
[2017-01-05] VITALS (7 sets, daily range): BP systolic 98–166; BP diastolic 35–85
[2017-01-05] MEDS: HEPARIN 25,000UTS/500ML PREMIX 500 ML IV PRN (02:34)
[2017-01-05 05:33] LABS: HEMOGLOBIN 14.8 g/dL (12.0-15.5); RED BLOOD COUNT 4.89 x10^6/uL (3.50-5.40); RED CELL DISTRIBUTION WIDTH 14.4 % (11.5-14.5); WHITE BLOOD COUNT 16.7 x10^3/uL (4.0-11.0)
[2017-01-05 05:39] LABS: INR 1.1 (0.8-1.1); PROTHROMBIN TIME PATIENT 13.3 SEC (11.7-14.0)
[2017-01-05] MEDS: IPRATRPIUM/ALBUTEROL 0.5/2.5MG 3 ML NEBU. NEB SCH ×5 (08:00→19:37)
[2017-01-05] MEDS: BUDESONIDE 0.5 MG/2 ML NEBU. NEB SCH ×2 (08:00→19:37)
[2017-01-05] MEDS: predniSONE 20 MG TABLET PO SCH (08:04)
[2017-01-05] MEDS: LISINOPRIL 20 MG TABLET PO SCH (08:04)
--- NOTE | 2017-01-05 08:47 | PDOC ---
PULMONARY PROGRESS NOTES Subjective FEELS LESS STRESS TODAY NO INCREASE SOA Vitals Vital Signs Date Time Temp Pulse Resp B/P (MAP) Pulse Ox O2 Delivery O2 Flow Rate FiO2 01/05/17 08:04 76 113/73 01/05/17 08:01 96 Room Air 01/05/17 04:14 97.9 18 97.9 01/04/17 20:22 2.0 ROS: No Nausea, No Chest Pain, No Increase Cough General: Alert Lungs: Clear Cardiovascular: S1, S2 Abdomen: Soft Neuro Exam: Alert, Oriented Extremities: No Edema Skin: Warm Labs Laboratory Tests Test 01/03/17 09:40 01/03/17 15:05 01/03/17 21:20 01/04/17 05:00 Nasal Screen MRSA (PCR) Negative (Negative) Heparin Anti-Xa Act, Unfractionated 0.46 IU/mL (0.30-0.70) 0.42 IU/mL (0.30-0.70) 0.50 IU/mL (0.30-0.70) White Blood Count 19.0 x10^3/uL (4.0-11.0) Red Blood Count 4.60 x10^6/uL (3.50-5.40) Hemoglobin 14.0 g/dL (12.0-15.5) Hematocrit 41.0 % (36.0-47.0) Mean Corpuscular Volume 89 fL (79-100) Mean Corpuscular Hemoglobin 30 pg (25-35) Mean Corpuscular Hemoglobin Concent 34 g/dL (31-37) Red Cell Distribution Width 13.6 % (11.5-14.5) Platelet Count 238 x10^3/uL (140-400) Neutrophils (%) (Auto) 90 % (31-73) Lymphocytes (%) (Auto) 7 % (24-48) Monocytes (%) (Auto) 3 % (0-9) Eosinophils (%) (Auto) 0 % (0-3) Basophils (%) (Auto) 0 % (0-3) Neutrophils # (Auto) 17.1 x10^3uL (1.8-7.7) Lymphocytes # (Auto) 1.3 x10^3/uL (1.0-4.8) Monocytes # (Auto) 0.5 x10^3/uL (0.0-1.1) Eosinophils # (Auto) 0.0 x10^3/uL (0.0-0.7) Basophils # (Auto) 0.0 x10^3/uL (0.0-0.2) Segmented Neutrophils % 88 % (35-66) Band Neutrophils % 1 % (0-9) Lymphocytes % 10 % (24-48) Monocytes % 1 % (0-10) Platelet Estimate Adequate (ADEQUATE) Prothrombin Time 12.1 SEC (11.7-14.0) Prothromb Time International Ratio 1.0 (0.8-1.1) Sodium Level 142 mmol/L (136-145) Potassium Level 4.6 mmol/L (3.5-5.1) Chloride Level 102 mmol/L (98-107) Carbon Dioxide Level 36 mmol/L (21-32) Anion Gap 4 (6-14) Blood Urea Nitrogen 15 mg/dL (7-20) Creatinine 0.6 mg/dL (0.6-1.0) Estimated GFR (Cockcroft-Gault) 106.7 Glucose Level 142 mg/dL (70-99) Calcium Level 9.1 mg/dL (8.5-10.1) Test 01/05/17 05:00 White Blood Count 16.7 x10^3/uL (4.0-11.0) Red Blood Count 4.89 x10^6/uL (3.50-5.40) Hemoglobin 14.8 g/dL (12.0-15.5) Hematocrit 45.0 % (36.0-47.0) Mean Corpuscular Volume 92 fL (79-100) Mean Corpuscular Hemoglobin 30 pg (25-35) Mean Corpuscular Hemoglobin Concent 33 g/dL (31-37) Red Cell Distribution Width 14.4 % (11.5-14.5) Platelet Count 225 x10^3/uL (140-400) Prothrombin Time 13.3 SEC (11.7-14.0) Prothromb Time International Ratio 1.1 (0.8-1.1) Heparin Anti-Xa Act, Unfractionated 0.46 IU/mL (0.30-0.70) Laboratory Tests Test 01/05/17 05:00 White Blood Count 16.7 x10^3/uL (4.0-11.0) Red Blood Count 4.89 x10^6/uL (3.50-5.40) Hemoglobin 14.8 g/dL (12.0-15.5) Hematocrit 45.0 % (36.0-47.0) Mean Corpuscular Volume 92 fL (79-100) Mean Corpuscular Hemoglobin 30 pg (25-35) Mean Corpuscular Hemoglobin Concent 33 g/dL (31-37) Red Cell Distribution Width 14.4 % (11.5-14.5) Platelet Count 225 x10^3/uL (140-400) Prothrombin Time 13.3 SEC (11.7-14.0) Prothromb Time International Ratio 1.1 (0.8-1.1) Heparin Anti-Xa Act, Unfractionated 0.46 IU/mL (0.30-0.70) Medications Active Scripts Medications Dose Route/Sig Max Daily Dose Days Date Category [amlododipine] 01/03/17 Reported Lovastatin 20 Mg Tablet 20 Mg PO HS 01/03/17 Reported Lisinopril 20 Mg Tablet 20 Mg PO DAILY 01/03/17 Reported Prednisone 10 Mg Tablet 10 Mg PO DAILY 01/03/17 Reported [place] 5-325 Tablet (Acetaminophen/Hydrocodone Bitart) 1 Each Tablet 1-2 Tab PO Q4-6HRS 04/29/16 Rx Albuterol Sulfate Neb Soln (Albuterol Sulfate) 2.5 Mg/3 Ml Vial.neb 2.5 Mg NEB BID 05/11/15 Reported Impression . 1. Acute hypercapnic respiratory failure secondary to acute exacerbation of chronic obstructive pulmonary disease. 2. Abnormal CT of the chest with thrombus in the left lower lobe artery, etiology suspect immobilization 3. Acute exacerbation of chronic obstructive pulmonary disease. 4. Tobacco dependent. 5. Obesity. 6. Depression/Anxiety 7. Hypertension. Plan . HOME WITH OREN TATE BY ME SPOKE WITH RADIOLOGIST WE THINK IN RETROSPECT REVIEW THE THROMBUS IS REAL. PT NEEDS ANTICOAGULATION FOR 3 MONTHS VENOUS DOPPLER RESULTS NEGATIVE RANI KAUR MD Jan 05, 2017 08:47
[2017-01-05] MEDS ORDERED: ONDANSETRON PF 4 MG/2 ML VIAL. IV PRN (10:45)
--- NOTE | 2017-01-05 11:06 | PDOC ---
PROGRESS NOTES Chief Complaint Chief Complaint acute hypoxic respiratory failure PE COPD, ae morbid obesity, BMI 41 tobaccoism ongoing anxiety d/o History of Present Illness History of Present Illness anxiety much better today, still wanting to leave soon will stop heparin gtt for lovenox, plan Eliquis at home tomorrow with SW assistance s/p nicotine patch and gum and IV ativan, less tearful and emotional eating well tele stable, tachycardic Vitals Vitals Vital Signs Date Time Temp Pulse Resp B/P (MAP) Pulse Ox O2 Delivery O2 Flow Rate FiO2 01/05/17 08:04 76 113/73 01/05/17 08:01 96 Room Air 01/05/17 08:00 98.2 20 98.2 01/05/17 08:00 2.0 Physical Exam General: Alert, Oriented X3, Cooperative, moderate distress Lungs: Clear Abdomen: Normal bowel sounds, Soft (obese) Extremities: No edema, Normal pulses Skin: No rashes Labs LABS Laboratory Tests Test 01/05/17 05:00 White Blood Count 16.7 x10^3/uL (4.0-11.0) Red Blood Count 4.89 x10^6/uL (3.50-5.40) Hemoglobin 14.8 g/dL (12.0-15.5) Hematocrit 45.0 % (36.0-47.0) Mean Corpuscular Volume 92 fL (79-100) Mean Corpuscular Hemoglobin 30 pg (25-35) Mean Corpuscular Hemoglobin Concent 33 g/dL (31-37) Red Cell Distribution Width 14.4 % (11.5-14.5) Platelet Count 225 x10^3/uL (140-400) Prothrombin Time 13.3 SEC (11.7-14.0) Prothromb Time International Ratio 1.1 (0.8-1.1) Heparin Anti-Xa Act, Unfractionated 0.46 IU/mL (0.30-0.70) Review of Systems Review of Systems anxiety no nv.d. no pain Assessment and Plan Assessmemt and Plan Problems Medical Problems: (1) COPD (chronic obstructive pulmonary disease) case managementpatient Status: Acute (2) Pulmonary embolus Status: Acute Problems: Comment Review of Relevant I have reviewed the following items keven (where applicable) has been applied. Labs Laboratory Tests Test 01/03/17 15:05 01/03/17 21:20 01/04/17 05:00 01/05/17 05:00 Heparin Anti-Xa Act, Unfractionated 0.46 IU/mL (0.30-0.70) 0.42 IU/mL (0.30-0.70) 0.50 IU/mL (0.30-0.70) 0.46 IU/mL (0.30-0.70) White Blood Count 19.0 x10^3/uL (4.0-11.0) 16.7 x10^3/uL (4.0-11.0) Red Blood Count 4.60 x10^6/uL (3.50-5.40) 4.89 x10^6/uL (3.50-5.40) Hemoglobin 14.0 g/dL (12.0-15.5) 14.8 g/dL (12.0-15.5) Hematocrit 41.0 % (36.0-47.0) 45.0 % (36.0-47.0) Mean Corpuscular Volume 89 fL (79-100) 92 fL (79-100) Mean Corpuscular Hemoglobin 30 pg (25-35) 30 pg (25-35) Mean Corpuscular Hemoglobin Concent 34 g/dL (31-37) 33 g/dL (31-37) Red Cell Distribution Width 13.6 % (11.5-14.5) 14.4 % (11.5-14.5) Platelet Count 238 x10^3/uL (140-400) 225 x10^3/uL (140-400) Neutrophils (%) (Auto) 90 % (31-73) Lymphocytes (%) (Auto) 7 % (24-48) Monocytes (%) (Auto) 3 % (0-9) Eosinophils (%) (Auto) 0 % (0-3) Basophils (%) (Auto) 0 % (0-3) Neutrophils # (Auto) 17.1 x10^3uL (1.8-7.7) Lymphocytes # (Auto) 1.3 x10^3/uL (1.0-4.8) Monocytes # (Auto) 0.5 x10^3/uL (0.0-1.1) Eosinophils # (Auto) 0.0 x10^3/uL (0.0-0.7) Basophils # (Auto) 0.0 x10^3/uL (0.0-0.2) Segmented Neutrophils % 88 % (35-66) Band Neutrophils % 1 % (0-9) Lymphocytes % 10 % (24-48) Monocytes % 1 % (0-10) Platelet Estimate Adequate (ADEQUATE) Prothrombin Time 12.1 SEC (11.7-14.0) 13.3 SEC (11.7-14.0) Prothromb Time International Ratio 1.0 (0.8-1.1) 1.1 (0.8-1.1) Sodium Level 142 mmol/L (136-145) Potassium Level 4.6 mmol/L (3.5-5.1) Chloride Level 102 mmol/L (98-107) Carbon Dioxide Level 36 mmol/L (21-32) Anion Gap 4 (6-14) Blood Urea Nitrogen 15 mg/dL (7-20) Creatinine 0.6 mg/dL (0.6-1.0) Estimated GFR (Cockcroft-Gault) 106.7 Glucose Level 142 mg/dL (70-99) Calcium Level 9.1 mg/dL (8.5-10.1) Laboratory Tests Test 01/05/17 05:00 White Blood Count 16.7 x10^3/uL (4.0-11.0) Red Blood Count 4.89 x10^6/uL (3.50-5.40) Hemoglobin 14.8 g/dL (12.0-15.5) Hematocrit 45.0 % (36.0-47.0) Mean Corpuscular Volume 92 fL (79-100) Mean Corpuscular Hemoglobin 30 pg (25-35) Mean Corpuscular Hemoglobin Concent 33 g/dL (31-37) Red Cell Distribution Width 14.4 % (11.5-14.5) Platelet Count 225 x10^3/uL (140-400) Prothrombin Time 13.3 SEC (11.7-14.0) Prothromb Time International Ratio 1.1 (0.8-1.1) Heparin Anti-Xa Act, Unfractionated 0.46 IU/mL (0.30-0.70) Medications Current Medications Albuterol/ Ipratropium (Duoneb) 3 ml 1X ONCE NEB Last administered on 23:52; Start 01/02/17 at 23:45; Stop 01/02/17 at 23:46; Status DC Dexamethasone Sodium Phosphate (Decadron) 10 mg 1X ONCE IV Last administered on 01/02/17 23:40; Start 01/02/17 at 23:45; Stop 01/02/17 at 23:46; Status DC Ondansetron HCl (Zofran) 4 mg 1X ONCE IV Last administered on 01/02/17 23:40; Start 01/02/17 at 23:45; Stop 01/02/17 at 23:46; Status DC Fentanyl Citrate (Fentanyl 2ml Vial) 50 mcg 1X ONCE IV Last administered on 00:24; Start 01/03/17 at 00:15; Stop 01/03/17 at 00:16; Status DC Iohexol (Omnipaque 300 Mg/ml) 75 ml 1X ONCE IV Last administered on 01/03/17 00:44; Start 01/03/17 at 00:30; Stop 01/03/17 at 00:31; Status DC Info (Do NOT chart on this entry -- for MONITORING) 1 each PRN DAILY PRN MC SEE COMMENTS; Start 01/03/17 at 00:15; Stop 01/05/17 at 00:14; Status DC Heparin Sodium (Porcine) (Heparin Sodium) 8,000 unit 1X ONCE IV Last administered on 01/03/17 01:45; Start 01/03/17 at 02:00; Stop 01/03/17 at 02:01; Status DC Heparin Sodium/ Dextrose 500 ml @ 0 mls/hr CONT PRN IV SEE I/O RECORD Last administered on 01/05/17 02:34; Start 01/03/17 at 01:30 Heparin Sodium (Porcine) (Heparin Sodium) 3,000 unit PRN Q6HRS PRN IV FOR UFH LEVEL LESS THAN 0.2; Start 01/03/17 at 01:30 Heparin Sodium (Porcine) (Heparin Sodium) 1,500 unit PRN Q6HRS PRN IV FOR UFH LEVEL 0.2 - 0.29; Start 01/03/17 at 01:30 Warfarin Sodium (Coumadin Per Pharmacy) 1 each PRN DAILY PRN MC PER PROTOCOL Last administered on 01/04/17 13:12; Start 01/03/17 at 01:30; Stop 01/05/17 at 09: 32; Status DC Ondansetron HCl (Zofran) 4 mg PRN Q8HRS PRN IV NAUSEA/VOMITING Last administered on 01/04/17 01:28; Start 01/03/17 at 01:30; Stop 01/04/17 at 01:29; Status DC Morphine Sulfate 4 mg PRN Q2HR PRN IV SEVERE PAIN Last administered on 10:57; Start 01/03/17 at 01:30; Stop 01/04/17 at 01:29; Status DC Acetaminophen (Tylenol) 650 mg PRN Q4HRS PRN PO FEVER; Start 01/03/17 at 01:30; Stop 01/04/17 at 01:29; Status DC Info (Anti-Coagulation Monitoring By Pharmacy) 1 each PRN DAILY PRN MC SEE COMMENTS Last administered on 01/03/17 03:42; Start 01/03/17 at 01:30 Lorazepam (Ativan) 1 mg 1X ONCE IV Last administered on 01/03/17 01:52; Start 01/03/17 at 02:00; Stop 01/03/17 at 02:01; Status DC Albuterol/ Ipratropium (Duoneb) 3 ml Q4HRS W/A NEB Last administered on 08:00; Start 01/03/17 at 10:00 Budesonide (Pulmicort) 0.5 mg RTBID NEB Last administered on 01/05/17 08:00; Start 01/03/17 at 20:00 Budesonide (Pulmicort) 0.5 mg 1X ONCE NEB Last administered on 01/03/17 09:07 ; Start 01/03/17 at 09:30; Stop 01/03/17 at 09:31; Status DC Acetaminophen/ Hydrocodone Bitart (Lort[place] 5/325) 1 tab PRN Q4HRS PRN PO pain Last administered on 01/04/17 16:37; Start 01/03/17 at 09:00 Lisinopril (Prinivil) 20 mg DAILY PO Last administered on 01/05/17 08:04; Start 01/03/17 at 09:30 Atorvastatin Calcium (Lipitor) 5 mg QHS PO Last administered on 01/04/17 21:54 ; Start 01/03/17 at 21:00 Prednisone (Prednisone) 10 mg DAILY PO ; Start 01/03/17 at 09:00; Stop 01/03/17 at 09:06; Status DC Prednisone (Prednisone) 50 mg 1X ONCE PO ; Start 01/03/17 at 09:30; Stop at 09:31; Status Cancel Prednisone (Prednisone) 20 mg DAILY PO Last administered on 01/05/17 08:04; Start 01/04/17 at 09:00 Prednisone (Prednisone) 50 mg 1X ONCE PO Last administered on 01/03/17 16:56; Start 01/03/17 at 17:00; Stop 01/03/17 at 17:01; Status DC Warfarin Sodium (Coumadin) 7.5 mg 1X WARF ONCE PO Last administered on 15:50; Start 01/03/17 at 16:00; Stop 01/03/17 at 16:00; Status DC Throat Lozenges (Chloraseptic) 1 spray PRN Q2HR PRN PO SORE THROAT Last administered on 01/03/17 16:56; Start 01/03/17 at 16:15 Warfarin Sodium (Coumadin Per Pharmacy) 1 each PRN DAILY PRN MC SEE COMMENTS; Start 01/03/17 at 18:15; Status UNV Nicotine (Nicoderm Cq 21mg) 1 patch PRN DAILY PRN TD SMOKING CESSATION Last administered on 01/04/17 09:08; Start 01/04/17 at 09:00 Nicotine Polacrilex (Nicorette Gum) 1 each PRN Q1HR PRN BC SMOKING CESSATION; Start 01/04/17 at 09:00 Lorazepam (Ativan) 2 mg PRN Q4HRS PRN IV ANXIETY / AGITATION Last administered on 01/05/17 08:05; Start 01/04/17 at 09:00 Warfarin Sodium (Coumadin) 7.5 mg 1X WARF ONCE PO ; Start 01/04/17 at 16:00; Stop 01/04/17 at 16:01; Status DC Ondansetron HCl (Zofran) 4 mg PRN Q6HRS PRN IV NAUSEA/VOMITING; Start 01/05/17 at 10:45 Active Scripts Active [place] 5-325 Tablet (Acetaminophen/Hydrocodone Bitart) 1 Each Tablet 1-2 Tab PO Q4-6HRS Reported [amlododipine] Lovastatin 20 Mg Tablet 20 Mg PO HS Lisinopril 20 Mg Tablet 20 Mg PO DAILY Prednisone 10 Mg Tablet 10 Mg PO DAILY Albuterol Sulfate Neb Soln (Albuterol Sulfate) 2.5 Mg/3 Ml Vial.neb 2.5 Mg NEB BID Vitals/I & O Vital Sign - Last 24 Hours 01/04/17 01/04/17 01/04/17 01/04/17 12:08 16:00 16:37 16:38 Temp 98.4 98.4 Pulse 81 Resp 20 18 B/P (MAP) 109/74 (86) Pulse Ox 90 94 90 91 O2 Delivery Nasal Cannula Nasal Cannula Nasal Cannula Room Air O2 Flow Rate 2.0 2.0 2.0 01/04/17 01/04/17 01/04/17 01/04/17 17:36 20:00 20:22 20:38 Temp 98.1 98.1 Pulse 85 Resp 18 21 B/P (MAP) 119/68 (85) Pulse Ox 91 96 94 O2 Delivery Nasal Cannula Nasal Cannula Room Air Room Air O2 Flow Rate 2.0 2.0 2.0 01/05/17 01/05/17 01/05/17 01/05/17 00:32 04:14 08:00 08:00 Temp 98.1 97.9 98.2 98.1 97.9 98.2 Pulse 77 76 92 Resp 20 18 20 B/P (MAP) 166/85 (112) 113/73 (86) 123/80 (94) Pulse Ox 93 96 92 O2 Delivery Room Air Room Air Nasal Cannula Room Air O2 Flow Rate 2.0 01/05/17 01/05/17 08:01 08:04 Pulse 76 B/P (MAP) 113/73 Pulse Ox 96 O2 Delivery Room Air Intake and Output 01/04/17 01/04/17 01/05/17 15:00 23:00 07:00 Intake Total 0 ml Balance 0 ml TRELL MORALES MD Jan 05, 2017 11:05
[2017-01-05] MEDS: HYDROcodone/APAP 5/325MG 1 TAB TABLET PO PRN (17:39)
[2017-01-05] MEDS: ATORVASTATIN CALCIUM 10 MG TABLET. PO SCH (21:34)
[2017-01-06 02:39] VITALS: BP_SYST 142; BP_SYST 145; BP_DIAS 104; BP_DIAS 89
[2017-01-06 06:39] LABS: INR 1.1 (0.8-1.1); PROTHROMBIN TIME PATIENT 13.6 SEC (11.7-14.0)
[2017-01-06 07:00] VITALS: BP 131/98
[2017-01-06] MEDS: IPRATRPIUM/ALBUTEROL 0.5/2.5MG 3 ML NEBU. NEB SCH (07:39)
[2017-01-06] MEDS: BUDESONIDE 0.5 MG/2 ML NEBU. NEB SCH (07:40)
[2017-01-06 07:57] VITALS: BP 142/104
[2017-01-06] MEDS: LISINOPRIL 20 MG TABLET PO SCH (07:57)
[2017-01-06] MEDS: predniSONE 20 MG TABLET PO SCH (07:57)
--- NOTE | 2017-01-06 08:52 | PDOC3 ---
Discharge Summary Visit Information Date of Admission: Jan 03, 2017 Date of Discharge: Jan 06, 2017 Admitting Diagnosis Comment: acute hypoxic respiratory failure PE COPD, ae morbid obesity, BMI 41 tobaccoism ongoing anxiety d/o Final Diagnosis Problems Medical Problems: (1) COPD (chronic obstructive pulmonary disease) case managementpatient Status: Acute (2) Pulmonary embolus Status: Acute Brief Hospital Course Allergies Allergies Coded Allergies Type Severity Reaction Last Updated Verified No Known Drug Allergies 09/06/16 No Vital Signs Vital Signs Date Time Temp Pulse Resp B/P (MAP) Pulse Ox O2 Delivery O2 Flow Rate FiO2 01/06/17 07:57 90 142/104 01/06/17 07:42 96 Room Air 01/06/17 07:00 98.1 20 98.1 01/05/17 08:00 2.0 Lab Results Laboratory Tests Test 01/05/17 05:00 01/06/17 04:40 White Blood Count 16.7 x10^3/uL (4.0-11.0) Red Blood Count 4.89 x10^6/uL (3.50-5.40) Hemoglobin 14.8 g/dL (12.0-15.5) Hematocrit 45.0 % (36.0-47.0) Mean Corpuscular Volume 92 fL (79-100) Mean Corpuscular Hemoglobin 30 pg (25-35) Mean Corpuscular Hemoglobin Concent 33 g/dL (31-37) Red Cell Distribution Width 14.4 % (11.5-14.5) Platelet Count 225 x10^3/uL (140-400) Prothrombin Time 13.3 SEC (11.7-14.0) 13.6 SEC (11.7-14.0) Prothromb Time International Ratio 1.1 (0.8-1.1) 1.1 (0.8-1.1) Heparin Anti-Xa Act, Unfractionated 0.46 IU/mL (0.30-0.70) Laboratory Tests Test 01/06/17 04:40 Prothrombin Time 13.6 SEC (11.7-14.0) Prothromb Time International Ratio 1.1 (0.8-1.1) Brief Hospital Course Ms. Valencia is a 46 old obese female, smoker, admitted for SOA,was hypoxic, ICU admit, work up showed small PE, unprovoked, NOt on OCP,. Smoker though, first episode, VEnous dopplers neg. CO managed with pulmo. SP, GAve free 30 day supply eliquis, needing assistance for the rest of 2 mos worth, SW consulted,. Home later after SW sees. Pt seen and examined. HIgh anxiety level, will also rx some xanax. Dc 32 mins> 50% education and counselling Discharge Information Condition at Discharge: Improved, Stable Disposition/Orders: D/C to Home Scheduled Albuterol Sulfate (Albuterol Sulfate Neb Soln), 2.5 MG NEB BID, (Reported) Hydrocodone/[place] 5-325 ([place] 5-325 Tablet), 1-2 TAB PO Q4-6HRS Lisinopril (Lisinopril), 20 MG PO DAILY, (Reported) Lovastatin (Lovastatin), 20 MG PO HS, (Reported) Prednisone (Prednisone), 10 MG PO DAILY, (Reported) Miscellaneous Medications [amlododipine], (Reported) LORRIE BRADFORD MD Jan 06, 2017 08:52
== END 2017-01-06 10:26 | disposition home or self-care (01) | DRG 175 ==
LOC: ER 23:11 → 1 WEST ICU 01-03 01:20 → 2 SOUTH 01-03 23:36 → 5 SOUTH 01-05 14:49
PROVIDERS: ADMIT Internal Medicine; ATTEND Internal Medicine
PROC: 5A09357 Assistance with Respiratory Ventilation, Less than 24 Consecutive Hours, Continuous Positive Airway Pressure (ICD-10-PCS; principal; 2017-01-03)
DX: I26.99 Other pulmonary embolism without acute cor pulmonale (principal); J96.22 Acute and chronic respiratory failure with hypercapnia; J96.21 Acute and chronic respiratory failure with hypoxia; J44.1 Chronic obstructive pulmonary disease with (acute) exacerbation; E87.2 Acidosis; E66.01 Morbid (severe) obesity due to excess calories; F17.210 Nicotine dependence, cigarettes, uncomplicated; K21.9 Gastro-esophageal reflux disease without esophagitis; I10 Essential (primary) hypertension; F41.9 Anxiety disorder, unspecified; F32.9 Major depressive disorder, single episode, unspecified; D72.829 Elevated white blood cell count, unspecified; M48.00 Spinal stenosis, site unspecified; M19.90 Unspecified osteoarthritis, unspecified site; Z79.01 Long term (current) use of anticoagulants; Z82.3 Family history of stroke; Z82.49 Family history of ischemic heart disease and other diseases of the circulatory system; Z81.8 Family history of other mental and behavioral disorders; Z68.21 Body mass index [BMI] 21.0-21.9, adult; Z79.899 Other long term (current) drug therapy; Z79.1 Long term (current) use of non-steroidal anti-inflammatories (NSAID)
CPT/HCPCS: 36415; 36600; 71010; 71275; 80048; 80053; 82805; 84484; 85007; 85027; 85520; 85610; 87641; 93005; 93970; 94250; 94620; 94640; 94660; 94760; 96374; 96375; 99406; J1100; J1644; J1650; J2060; J2270; J2405; J3010; J7512; J7620; J7626; Q9967; 99285-25

== ENCOUNTER 2017-02-21 16:37 | Inpatient (IN) | payer SELFPAY ==
[~2017-02-21] VITALS: Ht 162.6 cm; Wt 105.3 kg
[~2017-02-21 16:37] MED LIST changes: +AMLODIPINE; +LISI-334 PO; +LOVA20TA2 PO; +PRED-220 PO
[2017-02-21] MEDS ORDERED: IPRATRPIUM/ALBUTEROL 0.5/2.5MG 3 ML NEBU. ONE (16:53)
[2017-02-21] MEDS ORDERED: methylPREDNISolone SOD SUCC PF 125 MG/2 ML VIAL. IV ONE (17:00)
[2017-02-21] MEDS ORDERED: IPRATRPIUM/ALBUTEROL 0.5/2.5MG 3 ML NEBU. NEB ONE (17:00)
[2017-02-21 17:10] LABS: BASO # 0.1 x10^3/uL (0.0-0.2); BASO % 1 % (0-3); EOS % 2 % (0-3); HEMATOCRIT 44.2 % (36.0-47.0); HEMOGLOBIN 14.9 g/dL (12.0-15.5); LYMPH # 3.2 x10^3/uL (1.0-4.8); LYMPH % 29 % (24-48); MEAN CORPUSCULAR HEMOGLOBIN 31 pg (25-35); MEAN CORPUSCULAR HGB CONC 34 g/dL (31-37); MEAN CORPUSCULAR VOLUME 91 fL (79-100); MONO % 7 % (0-9); NEUT % 62 % (31-73); PLATELET COUNT 261 x10^3/uL (140-400); RED BLOOD COUNT 4.87 x10^6/uL (3.50-5.40); RED CELL DISTRIBUTION WIDTH 13.7 % (11.5-14.5); WHITE BLOOD COUNT 11.1 x10^3/uL (4.0-11.0)
[2017-02-21 17:21] LABS: PROTHROMBIN TIME PATIENT 12.7 SEC (11.7-14.0)
[2017-02-21 17:22] LABS: CALCIUM 9.2 mg/dL (8.5-10.1); CREATININE 0.6 mg/dL (0.6-1.0); GFR 106.7; POTASSIUM 3.9 mmol/L (3.5-5.1)
[2017-02-21 17:26] LABS: HCO3 ABG 31 mmol/L (21-28); PCO2 ABG 52 mmHg (35-46); PO2 ABG 78 mmHg (75-108); SAT O2 ABG 95 % (92-99)
[2017-02-21 17:28] LABS: ALBUMIN/GLOBULIN RATIO 1.1 (1.0-1.7); TOTAL BILIRUBIN 0.4 mg/dL (0.2-1.0); TOTAL PROTEIN 7.7 g/dL (6.4-8.2)
[2017-02-21 17:31] LABS: FIO2 ABG 40
[2017-02-21] MEDS ORDERED: ACETAMINOPHEN 325 MG TABLET. PO PRN (18:15)
[2017-02-21] MEDS ORDERED: ONDANSETRON PF 4 MG/2 ML VIAL. IV PRN (18:15)
[2017-02-21] MEDS ORDERED: HYDROcodone/APAP 5/325MG 1 TAB TABLET PO ONE (18:45)
[2017-02-21 19:25] VITALS: BP 140/70
--- NOTE | 2017-02-21 19:25 | PHYS DOC ---
Past Medical History Past Medical History: COPD, Hypertension, Migraines, Pneumonia, Other Additional Past Medical Histor: obesity, chronic back pain, PE Past Surgical History: Other Additional Past Surgical Histo: D&C Alcohol Use: None Drug Use: None Adult General Chief Complaint Chief Complaint: SHORTNESS OF BREATH HPI HPI Patient is a 46 year old female who presents here today secondary to shortness of breath for 4 days. Patient reports she started having some chest discomfort around 1:30 PM today. Patient reports that the chest pain is been intermittent but the shortness of breath and constant. Patient has a history for COPD hypertension and was recently diagnosed with a pulmonary embolism within the month. [facility]. Patient has any diabetes liver or kidney problems. Patient denies any history of strokes or heart disease. Patient has any fevers shakes chills nausea vomiting or diarrhea. Patient reports that she did have some diaphoresis. Patient had a nonproductive cough. Patient reports that she uses her nebulizers at home however she has had not had much improvement with nebulizers. Patient reports that she is down to 3 or 4 cigarettes per day. Patient reports that she has joined a smoking cessation class and soda at one pack per day last month and she is definitely to 3 cigarettes currently. Patient denies any alcohol or drugs. Patient has no known drug allergies. Patient reports that she is on eliquis for her pulmonary embolism and has been Ray compliant with it. Review of systems: Constitutional: Denies fever or chills Eyes: Denies change in visual acuity, redness, or eye pain ] All other review systems are negative except as documented in the history of present illness portion. Physical exam: Constitutional: Well developed, well nourished, no acute distress, non-toxic appearance. [] HENT: Normocephalic, atraumatic, bilateral external ears normal, Eyes: conjunctiva normal, no discharge. [] Neck: Normal range of motion, no tenderness, supple, no stridor. [] Cardiovascular:Heart rate regular rhythm, Lungs & Thorax: Bilateral breath sounds clear to auscultation [] Abdomen: Bowel sounds normal, soft, no tenderness, no masses, no pulsatile masses. [] Skin: Warm, dry, no erythema, no rash. [] Back: No tenderness, no CVA tenderness. [] Extremities: No tenderness, no cyanosis, no clubbing, ROM intact, no edema. [] Neurologic: Alert and oriented X 3, normal motor function, normal sensory function, no focal deficits noted. [] Psychologic: Affect normal, judgement normal, mood normal. [] Assessment and plan This is a 46-year-old female who presents here today with shortness of breath. Patient received multiple DuoNeb's with some improvement in her symptoms. Patient's chest x-ray does not reveal any acute pathology or pneumonia. Patient's EKG revealed sinus rhythm at a heart rate of [address]-T wave abnormalities and no W[place] as interpreted by ER physician. Chest x-ray reveals normal heart size no infiltrates or effusions as interpreted by ER physician. Patient's pulse ox was 87% on room air upon arrival to the ER. Patient will need to be admitted to the hospital for further management of her COPD and her hypoxia. Case was discussed with Dr. Gaston Medical care time of 35 minutes reutilized and treatment and management of this patient's hypoxia, COPD, evaluation for possible PE. Patient presented in respiratory failure this has improved with aggressive treatment here in the ED. Current Medications Current Medications Current Medications Medications (Trade) Dose Ordered Sig/Franny Start Time Stop Time Status Last Admin Dose Admin Albuterol/ Ipratropium (Duoneb) 6 ml 1X ONCE 02/21/17 17:00 02/21/17 17:01 DC 02/21/17 17:00 6 ML Methylprednisolone Sodium Succinate (SOLU-Medrol 125MG VIAL) 125 mg 1X ONCE 02/21/17 17:00 02/21/17 17:01 DC 02/21/17 17:03 125 MG Allergies Allergies Allergies Coded Allergies Type Severity Reaction Last Updated Verified No Known Drug Allergies 09/06/16 No Current Patient Data Vital Signs Vital Signs Date Time Temp Pulse Resp B/P (MAP) Pulse Ox O2 Delivery O2 Flow Rate FiO2 02/21/17 17:44 91 118/74 (89) 94 Nasal Cannula 3.0 02/21/17 16:40 98.4 22 98.4 Lab Values Laboratory Tests Test 02/21/17 16:53 02/21/17 16:55 O2 Saturation 95 % (92-99) Arterial Blood pH 7.40 (7.35-7.45) Arterial Blood pCO2 at Patient Temp 52 mmHg (35-46) H Arterial Blood pO2 at Patient Temp 78 mmHg (75-108) Arterial Blood HCO3 31 mmol/L (21-28) H Arterial Blood Base Excess 5 mmol/L (-3-3) H FiO2 40 White Blood Count 11.1 x10^3/uL (4.0-11.0) H Red Blood Count 4.87 x10^6/uL (3.50-5.40) Hemoglobin 14.9 g/dL (12.0-15.5) Hematocrit 44.2 % (36.0-47.0) Mean Corpuscular Volume 91 fL (79-100) Mean Corpuscular Hemoglobin 31 pg (25-35) Mean Corpuscular Hemoglobin Concent 34 g/dL (31-37) Red Cell Distribution Width 13.7 % (11.5-14.5) Platelet Count 261 x10^3/uL (140-400) Neutrophils (%) (Auto) 62 % (31-73) Lymphocytes (%) (Auto) 29 % (24-48) Monocytes (%) (Auto) 7 % (0-9) Eosinophils (%) (Auto) 2 % (0-3) Basophils (%) (Auto) 1 % (0-3) Neutrophils # (Auto) 6.8 x10^3uL (1.8-7.7) Lymphocytes # (Auto) 3.2 x10^3/uL (1.0-4.8) Monocytes # (Auto) 0.8 x10^3/uL (0.0-1.1) Eosinophils # (Auto) 0.2 x10^3/uL (0.0-0.7) Basophils # (Auto) 0.1 x10^3/uL (0.0-0.2) Prothrombin Time 12.7 SEC (11.7-14.0) Prothrombin Time INR 1.0 (0.8-1.1) Sodium Level 141 mmol/L (136-145) Potassium Level 3.9 mmol/L (3.5-5.1) Chloride Level 102 mmol/L (98-107) Carbon Dioxide Level 34 mmol/L (21-32) H Anion Gap 5 (6-14) L Blood Urea Nitrogen 11 mg/dL (7-20) Creatinine 0.6 mg/dL (0.6-1.0) Estimated GFR (Cockcroft-Gault) 106.7 BUN/Creatinine Ratio 18 (6-20) Glucose Level 104 mg/dL (70-99) H Calcium Level 9.2 mg/dL (8.5-10.1) Total Bilirubin 0.4 mg/dL (0.2-1.0) Aspartate Amino Transferase (AST) 16 U/L (15-37) Alanine Aminotransferase (ALT) 22 U/L (14-59) Alkaline Phosphatase 86 U/L (46-116) Troponin I Quantitative < 0.017 ng/mL (0.000-0.055) HA-Uyn-G-Type Natriuretic Peptide 16 pg/mL (0-124) Total Protein 7.7 g/dL (6.4-8.2) Albumin 4.0 g/dL (3.4-5.0) Albumin/Globulin Ratio 1.1 (1.0-1.7) Laboratory Tests 02/21/17 16:55 Laboratory Tests 02/21/17 16:55 EKG EKG [] Radiology/Procedures Radiology/Procedures [] Course & Med Decision Making Course & Med Decision Making Pertinent Labs and Imaging studies reviewed. (See chart for details) [] Dragon Disclaimer Dragon Disclaimer This electronic medical record was generated, in whole or in part, using a voice recognition dictation system. Departure Departure Impression: Primary Impression: COPD (chronic obstructive pulmonary disease) Additional Impressions: Pulmonary embolus and infarction Chest pain Acute respiratory failure with hypoxemia Disposition: ADMITTED INPATIENT Admitting Physician: Reynold Gaston Condition: GUARDED Referrals: Frank DAVENPORT MD (PCP) Problem Qualifiers MARCIE VENTURA MD Feb 21, 2017 19:25
[2017-02-21] MEDS: IPRATRPIUM/ALBUTEROL 0.5/2.5MG 3 ML NEBU. NEB SCH (20:07)
[2017-02-21] MEDS ORDERED: APIX5TAB PO (20:37)
[2017-02-21] MEDS ORDERED: PARO20TA3 PO (20:38)
[2017-02-21] MEDS ORDERED: AMLO10TA2 PO (20:39)
[2017-02-21] MEDS ORDERED: ALPR0.5T6 PO (20:40)
[2017-02-21] MEDS ORDERED: CITA20TA9 PO (20:41)
[2017-02-21] MEDS ORDERED: ENOXAPARIN 40 MG/0.4 ML SYRINGE. SQ SCH (21:00)
[2017-02-21] MEDS: ATORVASTATIN CALCIUM 10 MG TABLET. PO SCH (21:50)
[2017-02-21 23:00] VITALS: BP 121/66
[2017-02-22] MEDS: HYDROcodone/APAP 5/325MG 1 TAB TABLET PO PRN ×2 (00:10→08:17)
[2017-02-22 03:00] VITALS: BP 125/71
[2017-02-22 05:41] LABS: BASO % 0 % (0-3); EOS % 0 % (0-3); HEMATOCRIT 41.8 % (36.0-47.0); HEMOGLOBIN 14.8 g/dL (12.0-15.5); LYMPH % 10 % (24-48); MEAN CORPUSCULAR HEMOGLOBIN 31 pg (25-35); MEAN CORPUSCULAR HGB CONC 35 g/dL (31-37); MEAN CORPUSCULAR VOLUME 88 fL (79-100); MONO % 1 % (0-9); NEUT % 88 % (31-73); PLATELET COUNT 259 x10^3/uL (140-400); RED BLOOD COUNT 4.72 x10^6/uL (3.50-5.40); RED CELL DISTRIBUTION WIDTH 14.3 % (11.5-14.5); WHITE BLOOD COUNT 9.8 x10^3/uL (4.0-11.0)
[2017-02-22] MEDS ORDERED: methylPREDNISolone SOD SUCC PF 40 MG/ML VIAL. IV SCH ×2 (06:00→21:00)
[2017-02-22 06:15] LABS: ALBUMIN 3.9 g/dL (3.4-5.0); ALBUMIN/GLOBULIN RATIO 1.1 (1.0-1.7); CALCIUM 9.1 mg/dL (8.5-10.1); CREATININE 0.9 mg/dL (0.6-1.0); GFR 66.8; POTASSIUM 4.3 mmol/L (3.5-5.1); TOTAL BILIRUBIN 0.3 mg/dL (0.2-1.0); TOTAL PROTEIN 7.3 g/dL (6.4-8.2)
[2017-02-22 07:00] VITALS: BP 120/76
[2017-02-22] MEDS: IPRATRPIUM/ALBUTEROL 0.5/2.5MG 3 ML NEBU. NEB SCH ×4 (08:00→18:34)
[2017-02-22] MEDS: LISINOPRIL 20 MG TABLET PO SCH (08:17)
--- NOTE | 2017-02-22 08:54 | PDOC ---
Provider Note Provider Note [id number] acute on chronic resp fail ae of copd acute bronchitis pe rul density restart eliquis steroid abx repeat ct GUILLERMO SYLVESTER MD Feb 22, 2017 08:54
[2017-02-22] MEDS ORDERED: predniSONE 10 MG TABLET PO SCH (09:00)
[2017-02-22] MEDS ORDERED: FLU VACC QS2017-18 (36MOS+)/PF 0.5 ML SYRINGE. VAX IM ONE ×2 (09:00)
[2017-02-22] MEDS ORDERED: PNEUMOC CONJ VACC 23-VALENT 0.5 ML VIAL. VAX IM ONE ×2 (09:00)
--- NOTE | 2017-02-22 09:24 | RAD ---
AP portable chest radiograph 02/21/2017 Clinical History: Shortness of breath for 4 days. An AP portable erect digital radiograph of the chest was obtained. Comparison study is dated 01/02/2017. The cardiac and mediastinal silhouettes are within normal limits in size and configuration. No acute pulmonary infiltrate is seen. No pleural effusion or pneumothorax is noted. The osseous structures are unchanged. Impression: No acute abnormality is seen.
--- NOTE | 2017-02-22 09:28 | CONS ---
DATE OF CONSULTATION: 02/22/2017 I was asked to see this 46-year-old lady for acute respiratory failure, acute exacerbation of COPD. HISTORY OF PRESENT ILLNESS: She does have history of [id number] smoking, continues to smoke between 3-8 cigarettes per day. She was diagnosed with pulmonary embolism until last month and has been on Eliquis. She has not felt good for the past 4-5 days. She has had increased cough, shortness of breath, wheezing, chest tightness. She has small amount of sputum production. She has had chills. She has nasal congestion. She denies gastroesophageal reflux symptoms. PAST MEDICAL HISTORY: COPD, pulmonary embolism, obesity. ALLERGIES: No known drug allergies. MEDICATIONS: Currently, she is on DuoNeb, Solu-Medrol 40 mg IV every 8, Lovenox 40 mg subcutaneous daily, hydrocodone, lisinopril. SOCIAL HISTORY: History of [id number] smoking, continues to smoke 3-8 cigarettes per day. 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 FAMILY HISTORY: Positive for hypertension. REVIEW OF SYSTEMS: As mentioned as above. She has snoring and excessive daytime sleepiness and she is on the list to have a sleep study. Other systems are otherwise negative. PHYSICAL EXAMINATION: GENERAL: This is an obese lady. VITAL SIGNS: Her O2 saturation on 3 liters of oxygen is 96%, respiratory rate 18, heart rate 76, blood pressure 120/76, temperature 97.7. HEENT: Normocephalic, atraumatic. Pupils equal, round, reactive to light. Throat is clear. There is shallow oropharynx. Nose: There is inflamed mucosa. NECK: There is no JVD, lymphadenopathy or thyromegaly. CARDIOVASCULAR: Regular rate and rhythm. PMI is nondisplaced. CHEST: Inspection is normal. LUNGS: Coarse breath sounds, few end expiratory wheezing. ABDOMEN: Soft. Bowel sounds are good. There is no mass. EXTREMITIES: There is no edema. LYMPHATICS: There is no lymphadenopathy. NEUROLOGIC: Alert and oriented x 3. SKIN: Warm. LABORATORY DATA: I reviewed the following lab data: Chest x-ray shows no infiltrates. CT of the chest done on 01/02/2017 shows right upper lobe density, left lower lobe pulmonary embolism. WBC 9.8, on admission was 11.1, hemoglobin 14.8, platelet 259. Sodium 140, potassium 4.3, chloride 98, CO2 of 33, glucose 173, BUN 19, creatinine 0.9. Troponin less than 0.01. BNP 16, ABG: pH 7.4, pCO2 of 52, pO2 of 78 on 40% FIO2. IMPRESSION: 1. Aclym-br-jegfzui hypoxemic respiratory failure secondary to acute exacerbation of chronic obstructive pulmonary disease, acute bronchitis versus others. 2. Abnormal CT of the chest with right upper lobe density. Differential diagnosis inflammatory versus infectious versus granulomatous versus malignancy versus others. 3. Tobacco habituation. 4. Snoring, excessive daytime sleepiness and obesity, probable obstructive sleep apnea-hypopnea syndrome. 5. Pulmonary embolism. 6. Hypertension. 7. Allergic rhinitis. PLAN AND RECOMMENDATIONS: 1. I had a long discussion with her regarding smoking cessation. I have advised her to stop smoking forever. 2. Bronchodilator. 3. Change Solu-Medrol to 40 mg IV every 12. 4. Start Rocephin. 5. Continue Eliquis, may stop Lovenox for DVT prophylaxis. 6. Protonix for stress ulcer prophylaxis. 7. I have discussed obstructive sleep apnea-hypopnea syndrome, the importance of diagnosis and treatment. If untreated, increased cardiovascular and HIGH MAN morbidity and mortality. I do recommend a split night sleep study as an outpatient. 8. I will repeat her CT of the chest to evaluate right upper lobe density. 9. Lose weight. 10. The findings and recommendations were discussed with the patient. She understood and agreed to proceed with the plan. I have answered all of her questions. Thank you very much for allowing me to participate in care of this very nice lady. GUILLERMO SYLVESTER M.D. : Horace JOB#: [id number] / [id number] JASON
[2017-02-22] MEDS: PANTOPRAZOLE 40 MG TABLET.DR. PO SCH (09:57)
[2017-02-22] MEDS: APIXABAN 5 MG TABLET. PO SCH ×2 (09:57→20:15)
[2017-02-22 11:00] VITALS: BP 115/63
--- NOTE | 2017-02-22 11:41 | EKG ---
[facility] [address] [place] [address] Test Date: 2017-02-21 Test Time: 16:43:32 Pat Name: AMARI GRENE Department: Room: 203 1 Gender: F Correspondence Analyst: : 1970 Requested By: MARCIE VENTURA Order Number: [id number] Reading MD: Anjali Prado Measurements Intervals [place] Rate: 81 P: 65 PA: 188 QRS: 2 QRSD: 76 T: 41 QT: 364 QTc: 428 Interpretive Statements SINUS RHYTHM QRS(T) CONTOUR ABNORMALITY CONSISTENT WITH ANTEROSEPTAL INFARCT AGE UNDETERMINED Electronically Signed On 02-24-2017 11:23:07 CDT by Anjali Prado
[2017-02-22] MEDS: NICOTINE 14MG PATCH. TD PRN (12:26)
[2017-02-22] MEDS: oxyCODONE/APAP 10/325 1 TAB TABLET PO PRN ×2 (12:26→20:15)
--- NOTE | 2017-02-22 14:51 | RAD ---
CT scan of the chest without contrast 02/22/2017 Clinical history: Nodule within the right upper lobe. Technique: Unenhanced, contiguous, 5 mm axial sections were obtained to the chest and upper abdomen. Findings: Comparison is made to patient's CTA of the chest dated 01/03/2017. Mild atherosclerotic calcification of the thoracic aorta is seen. The thoracic aorta tapers normally. The heart is normal in size. Calcified right hilar and mediastinal lymph nodes are again seen. A 1.9 cm rounded somewhat nodular groundglass opacity is seen involving the right upper lobe. This has not significantly changed since the previous examination. Mild emphysematous changes are seen involving both lungs. No new pulmonary nodule seen. Linear bands subsegmental atelectasis is seen involving both lower lobes. No pneumothorax or pleural effusion is seen. Images through the upper abdomen are within normal limits. The osseous structures are unchanged. Impression: Stable CT appearance of the 1.9 cm nodular groundglass opacity within the right upper lobe. Continued follow-up per Fleischner Society recommendations is recommended
--- NOTE | 2017-02-22 15:06 | HP ---
ADMIT DATE: 02/21/2017 CHIEF COMPLAINT: Shortness of breath. HISTORY OF PRESENT ILLNESS AND HOSPITAL COURSE: This patient is a 46-year-old female who came to the hospital with increasing shortness of breath over the last 4 days. She also had ongoing chest pain, she states was intermittent. The patient has known history of COPD and hypertension with a recent diagnosis of pulmonary embolus. The patient was seen in the ER in mild respiratory distress and was treated with breathing treatments and IV steroids. Due to severity, she was admitted for further evaluation and pulmonary consultation. PAST MEDICAL HISTORY: Significant for: 1. COPD with a greater than 38-pack year history of smoking. 2. Hypertension. 3. Ongoing tobacco abuse. 4. Esophageal reflux disease. 5. Chronic spinal stenosis and chronic pain syndrome. 6. Migraine headaches. 7. Morbid obesity. PAST SURGICAL HISTORY: D and C. FAMILY HISTORY: Noncontributory. SOCIAL HISTORY: The patient continues to smoke, but since pulmonary embolus she states she is smoking less than 6 cigarettes per day, down from 2 packs per day for over 30 years. REVIEW OF SYSTEMS: Significant for shortness of breath, chest pain, denies fever, nausea, vomiting, diarrhea. PHYSICAL EXAMINATION: GENERAL: This is a moderately obese female in no apparent distress on my exam, she is alert and oriented x 3. HEENT: Reveals poor dentition. NECK: Supple, without JVD or bruit. CARDIAC: Regular rate and rhythm. LUNGS: Clear anteriorly with coarse breath sounds in the bases. ABDOMEN: Soft and nontender. EXTREMITIES: 2+ pulses without significant edema. NEUROLOGIC: Showed no unilateral findings. ASSESSMENT: 1. Acute on chronic respiratory failure. 2. Chronic obstructive pulmonary disease with exacerbation. 3. History of recent pulmonary embolism. 4. Tobacco dependence. 5. Suspected obstructive sleep apnea. 6. Chronic low back pain with history of spinal stenosis. PLAN: To proceed with pulmonary toilet in the form of IV steroids, routine breathing treatments. We will also give IV antibiotics due to suspicion of pulmonary infarct and underlying pneumonia. We will proceed with pulmonary consultation and supportive care. KAITLYNN BUTLER MD DR: LUANNE/alcira JOB#: [id number] / [id number]
[2017-02-22 15:15] VITALS: BP 121/58
[2017-02-22 19:35] VITALS: BP 105/74
[2017-02-22] MEDS: ATORVASTATIN CALCIUM 10 MG TABLET. PO SCH (20:15)
[2017-02-22 23:42] VITALS: BP 128/73
[2017-02-23 03:50] VITALS: BP 100/58
[2017-02-23 07:45] VITALS: BP 122/69
[2017-02-23] MEDS: oxyCODONE/APAP 10/325 1 TAB TABLET PO PRN ×3 (07:45→19:39)
--- NOTE | 2017-02-23 08:25 | PDOC ---
PULMONARY PROGRESS NOTES Subjective sob better, has cough, not able to cough up sputum, has post nasal drip. has back pain Vitals Vital Signs Date Time Temp Pulse Resp B/P (MAP) Pulse Ox O2 Delivery O2 Flow Rate FiO2 02/23/17 07:45 Nasal Cannula 3.0 02/23/17 03:50 97.7 74 22 100/58 (72) 95 97.7 ROS: No Nausea, No Chest Pain General: Alert, Oriented X4 HEENT: Other (nc at perrl) Lungs: Other (deminished bs) Cardiovascular: S1, S2 Abdomen: Soft, Non-tender Neuro Exam: Alert, Oriented Extremities: No Edema Skin: Warm Labs Laboratory Tests Test 02/21/17 16:53 02/21/17 16:55 02/22/17 00:15 02/22/17 05:30 O2 Saturation 95 % (92-99) Arterial Blood pH 7.40 (7.35-7.45) Arterial Blood pCO2 at Patient Temp 52 mmHg (35-46) Arterial Blood pO2 at Patient Temp 78 mmHg (75-108) Arterial Blood HCO3 31 mmol/L (21-28) Arterial Blood Base Excess 5 mmol/L (-3-3) FiO2 40 White Blood Count 11.1 x10^3/uL (4.0-11.0) 9.8 x10^3/uL (4.0-11.0) Red Blood Count 4.87 x10^6/uL (3.50-5.40) 4.72 x10^6/uL (3.50-5.40) Hemoglobin 14.9 g/dL (12.0-15.5) 14.8 g/dL (12.0-15.5) Hematocrit 44.2 % (36.0-47.0) 41.8 % (36.0-47.0) Mean Corpuscular Volume 91 fL (79-100) 88 fL (79-100) Mean Corpuscular Hemoglobin 31 pg (25-35) 31 pg (25-35) Mean Corpuscular Hemoglobin Concent 34 g/dL (31-37) 35 g/dL (31-37) Red Cell Distribution Width 13.7 % (11.5-14.5) 14.3 % (11.5-14.5) Platelet Count 261 x10^3/uL (140-400) 259 x10^3/uL (140-400) Neutrophils (%) (Auto) 62 % (31-73) 88 % (31-73) Lymphocytes (%) (Auto) 29 % (24-48) 10 % (24-48) Monocytes (%) (Auto) 7 % (0-9) 1 % (0-9) Eosinophils (%) (Auto) 2 % (0-3) 0 % (0-3) Basophils (%) (Auto) 1 % (0-3) 0 % (0-3) Neutrophils # (Auto) 6.8 x10^3uL (1.8-7.7) 8.6 x10^3uL (1.8-7.7) Lymphocytes # (Auto) 3.2 x10^3/uL (1.0-4.8) 1.0 x10^3/uL (1.0-4.8) Monocytes # (Auto) 0.8 x10^3/uL (0.0-1.1) 0.1 x10^3/uL (0.0-1.1) Eosinophils # (Auto) 0.2 x10^3/uL (0.0-0.7) 0.0 x10^3/uL (0.0-0.7) Basophils # (Auto) 0.1 x10^3/uL (0.0-0.2) 0.0 x10^3/uL (0.0-0.2) Prothrombin Time 12.7 SEC (11.7-14.0) Prothromb Time International Ratio 1.0 (0.8-1.1) Sodium Level 141 mmol/L (136-145) 140 mmol/L (136-145) Potassium Level 3.9 mmol/L (3.5-5.1) 4.3 mmol/L (3.5-5.1) Chloride Level 102 mmol/L (98-107) 98 mmol/L (98-107) Carbon Dioxide Level 34 mmol/L (21-32) 33 mmol/L (21-32) Anion Gap 5 (6-14) 9 (6-14) Blood Urea Nitrogen 11 mg/dL (7-20) 19 mg/dL (7-20) Creatinine 0.6 mg/dL (0.6-1.0) 0.9 mg/dL (0.6-1.0) Estimated GFR (Cockcroft-Gault) 106.7 66.8 BUN/Creatinine Ratio 18 (6-20) 21 (6-20) Glucose Level 104 mg/dL (70-99) 173 mg/dL (70-99) Calcium Level 9.2 mg/dL (8.5-10.1) 9.1 mg/dL (8.5-10.1) Total Bilirubin 0.4 mg/dL (0.2-1.0) 0.3 mg/dL (0.2-1.0) Aspartate Amino Transf (AST/SGOT) 16 U/L (15-37) 15 U/L (15-37) Alanine Aminotransferase (ALT/SGPT) 22 U/L (14-59) 26 U/L (14-59) Alkaline Phosphatase 86 U/L (46-116) 84 U/L (46-116) Troponin I Quantitative < 0.017 ng/mL (0.000-0.055) < 0.017 ng/mL (0.000-0.055) < 0.017 ng/mL (0.000-0.055) JJ-Zfm-I-Type Natriuretic Peptide 16 pg/mL (0-124) Total Protein 7.7 g/dL (6.4-8.2) 7.3 g/dL (6.4-8.2) Albumin 4.0 g/dL (3.4-5.0) 3.9 g/dL (3.4-5.0) Albumin/Globulin Ratio 1.1 (1.0-1.7) 1.1 (1.0-1.7) Medications Active Scripts Medications Dose Route/Sig Max Daily Dose Days Date Category Celexa (Citalopram Hydrobromide) 20 Mg Tablet 20 Mg PO DAILY 02/21/17 Reported Alprazolam 0.5 Mg Tablet 1 Tab PO BID PRN 02/21/17 Reported Amlodipine Besylate 10 Mg Tablet 10 Mg PO DAILY 02/21/17 Reported Paroxetine Hcl 20 Mg Tablet 20 Mg PO DAILY 02/21/17 Reported Eliquis (Apixaban) 5 Mg Tablet 5 Mg PO BID 02/21/17 Reported [amlododipine] 01/03/17 Reported Lovastatin 20 Mg Tablet 20 Mg PO HS 01/03/17 Reported Lisinopril 20 Mg Tablet 20 Mg PO DAILY 01/03/17 Reported Prednisone 10 Mg Tablet 10 Mg PO DAILY 01/03/17 Reported [place] 5-325 Tablet (Acetaminophen/Hydrocodone Bitart) 1 Each Tablet 1-2 Tab PO Q4-6HRS 04/29/16 Rx Albuterol Sulfate Neb Soln (Albuterol Sulfate) 2.5 Mg/3 Ml Vial.neb 2.5 Mg NEB BID 05/11/[address] reviewed, Stable CT appearance of the 1.9 cm nodular groundglass opacity within the right upper lobe. Impression . IMPRESSION: 1. Bwsxk-rj-wvhequf hypoxemic respiratory failure secondary to acute exacerbation of chronic obstructive pulmonary disease, acute bronchitis versus others. 2. Abnormal CT of the chest with right upper lobe density. Differential diagnosis inflammatory versus infectious versus granulomatous versus malignancy versus others. 3. Tobacco habituation. 4. Snoring, excessive daytime sleepiness and obesity, probable obstructive sleep apnea-hypopnea syndrome. 5. Pulmonary embolism. 6. Hypertension. 7. Allergic rhinitis. Plan . PLAN AND RECOMMENDATIONS: 1. I had a long discussion with her regarding smoking cessation. I have advised her to stop smoking forever. 2. Bronchodilator. 3. Change Solu-Medrol to prednisone 40 mg daily 4. Rocephin. 5. Continue Eliquis, may stop Lovenox for DVT prophylaxis. 6. Protonix for stress ulcer prophylaxis. 7. I have discussed obstructive sleep apnea-hypopnea syndrome, the importance of diagnosis and treatment. If untreated, increased cardiovascular and WE[employer] CLEANER morbidity and mortality. I do recommend a split night sleep study as an outpatient. 8. repeat ct, no change in right upper lobe density, pet scan as out pt. 9. Lose weight. 10. add singulair. add mucinex The findings and recommendations were discussed with the patient. She understood and agreed to proceed with the plan. I have answered all of her questions. GUILLERMO SYLVESTER MD Feb 23, 2017 08:25
[2017-02-23] MEDS: NICOTINE 14MG PATCH. TD PRN (09:07)
[2017-02-23] MEDS: PANTOPRAZOLE 40 MG TABLET.DR. PO SCH (09:08)
[2017-02-23] MEDS: LISINOPRIL 20 MG TABLET PO SCH (09:08)
[2017-02-23] MEDS: predniSONE 20 MG TABLET PO SCH (09:08)
[2017-02-23] MEDS: APIXABAN 5 MG TABLET. PO SCH ×2 (09:08→21:10)
[2017-02-23] MEDS: IPRATRPIUM/ALBUTEROL 0.5/2.5MG 3 ML NEBU. NEB SCH ×4 (09:15→19:52)
--- NOTE | 2017-02-23 10:16 | PDOC ---
PROGRESS NOTES Subjective Subjective Patient feeling a little better today but still requiring O2 support Objective Objective Vital Signs Date Time Temp Pulse Resp B/P (MAP) Pulse Ox O2 Delivery O2 Flow Rate FiO2 02/23/17 09:08 77 122/69 02/23/17 08:48 93 Nasal Cannula 3.0 02/23/17 07:45 98.0 20 98.0 Physical Exam Abdomen: Normal bowel sounds Heart: Regular rate Extremities: No edema General: Alert Lungs: Other (distant BS) Assessment Assessment Problems Medical Problems: (1) Acute respiratory failure with hypoxemia Status: Acute (2) Chest pain Status: Acute 1. Acute on chronic respiratory failure. 2. Chronic obstructive pulmonary disease with exacerbation. 3. History of recent pulmonary embolism. 4. Tobacco dependence. 5. Suspected obstructive sleep apnea. 6. Chronic low back pain with history of spinal stenosis. Plan Plan of Care Continue o2 support and IV steroid Eval for home O2 Follow lung mass with PET scan as outpatient Comment Review of Relevant I have reviewed the following items keven (where applicable) has been applied. Labs Laboratory Tests Test 02/21/17 16:53 02/21/17 16:55 02/22/17 00:15 02/22/17 05:30 O2 Saturation 95 % (92-99) Arterial Blood pH 7.40 (7.35-7.45) Arterial Blood pCO2 at Patient Temp 52 mmHg (35-46) Arterial Blood pO2 at Patient Temp 78 mmHg (75-108) Arterial Blood HCO3 31 mmol/L (21-28) Arterial Blood Base Excess 5 mmol/L (-3-3) FiO2 40 White Blood Count 11.1 x10^3/uL (4.0-11.0) 9.8 x10^3/uL (4.0-11.0) Red Blood Count 4.87 x10^6/uL (3.50-5.40) 4.72 x10^6/uL (3.50-5.40) Hemoglobin 14.9 g/dL (12.0-15.5) 14.8 g/dL (12.0-15.5) Hematocrit 44.2 % (36.0-47.0) 41.8 % (36.0-47.0) Mean Corpuscular Volume 91 fL (79-100) 88 fL (79-100) Mean Corpuscular Hemoglobin 31 pg (25-35) 31 pg (25-35) Mean Corpuscular Hemoglobin Concent 34 g/dL (31-37) 35 g/dL (31-37) Red Cell Distribution Width 13.7 % (11.5-14.5) 14.3 % (11.5-14.5) Platelet Count 261 x10^3/uL (140-400) 259 x10^3/uL (140-400) Neutrophils (%) (Auto) 62 % (31-73) 88 % (31-73) Lymphocytes (%) (Auto) 29 % (24-48) 10 % (24-48) Monocytes (%) (Auto) 7 % (0-9) 1 % (0-9) Eosinophils (%) (Auto) 2 % (0-3) 0 % (0-3) Basophils (%) (Auto) 1 % (0-3) 0 % (0-3) Neutrophils # (Auto) 6.8 x10^3uL (1.8-7.7) 8.6 x10^3uL (1.8-7.7) Lymphocytes # (Auto) 3.2 x10^3/uL (1.0-4.8) 1.0 x10^3/uL (1.0-4.8) Monocytes # (Auto) 0.8 x10^3/uL (0.0-1.1) 0.1 x10^3/uL (0.0-1.1) Eosinophils # (Auto) 0.2 x10^3/uL (0.0-0.7) 0.0 x10^3/uL (0.0-0.7) Basophils # (Auto) 0.1 x10^3/uL (0.0-0.2) 0.0 x10^3/uL (0.0-0.2) Prothrombin Time 12.7 SEC (11.7-14.0) Prothromb Time International Ratio 1.0 (0.8-1.1) Sodium Level 141 mmol/L (136-145) 140 mmol/L (136-145) Potassium Level 3.9 mmol/L (3.5-5.1) 4.3 mmol/L (3.5-5.1) Chloride Level 102 mmol/L (98-107) 98 mmol/L (98-107) Carbon Dioxide Level 34 mmol/L (21-32) 33 mmol/L (21-32) Anion Gap 5 (6-14) 9 (6-14) Blood Urea Nitrogen 11 mg/dL (7-20) 19 mg/dL (7-20) Creatinine 0.6 mg/dL (0.6-1.0) 0.9 mg/dL (0.6-1.0) Estimated GFR (Cockcroft-Gault) 106.7 66.8 BUN/Creatinine Ratio 18 (6-20) 21 (6-20) Glucose Level 104 mg/dL (70-99) 173 mg/dL (70-99) Calcium Level 9.2 mg/dL (8.5-10.1) 9.1 mg/dL (8.5-10.1) Total Bilirubin 0.4 mg/dL (0.2-1.0) 0.3 mg/dL (0.2-1.0) Aspartate Amino Transf (AST/SGOT) 16 U/L (15-37) 15 U/L (15-37) Alanine Aminotransferase (ALT/SGPT) 22 U/L (14-59) 26 U/L (14-59) Alkaline Phosphatase 86 U/L (46-116) 84 U/L (46-116) Troponin I Quantitative < 0.017 ng/mL (0.000-0.055) < 0.017 ng/mL (0.000-0.055) < 0.017 ng/mL (0.000-0.055) UY-Gfx-X-Type Natriuretic Peptide 16 pg/mL (0-124) Total Protein 7.7 g/dL (6.4-8.2) 7.3 g/dL (6.4-8.2) Albumin 4.0 g/dL (3.4-5.0) 3.9 g/dL (3.4-5.0) Albumin/Globulin Ratio 1.1 (1.0-1.7) 1.1 (1.0-1.7) Medications Current Medications Albuterol/ Ipratropium (Duoneb) 3 ml STK-MED ONCE .ROUTE ; Start 02/21/17 at 16: 53; Stop 02/21/17 at 16:54; Status DC Albuterol/ Ipratropium (Duoneb) 6 ml 1X ONCE NEB Last administered on 17:00; Start 02/21/17 at 17:00; Stop 02/21/17 at 17:01; Status DC Methylprednisolone Sodium Succinate (SOLU-Medrol 125MG VIAL) 125 mg 1X ONCE IV Last administered on 02/21/17 17:03; Start 02/21/17 at 17:00; Stop 02/21/17 at 17:01; Status DC Ondansetron HCl (Zofran) 4 mg PRN Q8HRS PRN IV NAUSEA/VOMITING Last administered on 02/22/17 05:42; Start 02/21/17 at 18:15; Stop 02/22/17 at 18:14 ; Status DC Acetaminophen (Tylenol) 650 mg PRN Q4HRS PRN PO FEVER; Start 02/21/17 at 18:15 ; Stop 02/22/17 at 18:14; Status DC Albuterol/ Ipratropium (Duoneb) 3 ml RTQID NEB Last administered on 02/22/17 18:34; Start 02/21/17 at 20:00; Stop 02/22/17 at 19:59; Status DC Acetaminophen/ Hydrocodone Bitart (Lortab 5/325) 1 tab 1X ONCE PO Last administered on 02/21/17 18:41; Start 02/21/17 at 18:45; Stop 02/21/17 at 18:46 ; Status DC Acetaminophen/ Hydrocodone Bitart (Lortab 5/325) 2 tab PRN Q6HRS PRN PO SEVERE PAIN Last administered on 02/22/17 08:17; Start 02/21/17 at 20:45; Stop at 11:20; Status DC Lisinopril (Prinivil) 20 mg DAILY PO Last administered on 02/23/17 09:08; Start 02/22/17 at 09:00 Prednisone (Prednisone) 10 mg DAILY PO ; Start 02/22/17 at 09:00; Status Cancel Atorvastatin Calcium (Lipitor) 5 mg QHS PO Last administered on 02/22/17 20:15 ; Start 02/21/17 at 21:00 Methylprednisolone Sodium Succinate (SOLU-Medrol 40MG VIAL) 40 mg Q8HRS IV Last administered on 02/22/17 05:42; Start 02/22/17 at 06:00; Stop 02/22/17 at 08:46; Status DC Enoxaparin Sodium (Lovenox 40mg Syringe) 40 mg Q24H SQ Last administered on 21:50; Start 02/21/17 at 21:00; Stop 02/22/17 at 08:55; Status DC Pneumococcal Polyvalent Vaccine (Pneumovax 23) 0.5 ml ONCE ONCE VAX IM ; Start 02/22/17 at 09:00; Stop 02/22/17 at 09:01; Status UNV Influenza Virus Vaccine Quadrival (Fluarix Quad Syringe) 0.5 ml ONCE ONCE VAX IM ; Start 02/22/17 at 09:00; Stop 02/22/17 at 09:01; Status UNV Influenza Virus Vaccine Quadrival (Fluarix Quad Syringe) 0.5 ml ONCE ONCE VAX IM Last administered on 02/22/17 08:22; Start 02/22/17 at 09:00; Stop 02/22/17 at 09:01; Status DC Pneumococcal Polyvalent Vaccine (Pneumovax 23) 0.5 ml ONCE ONCE VAX IM Last administered on 02/22/17 08:20; Start 02/22/17 at 09:00; Stop 02/22/17 at 09:01 ; Status DC Methylprednisolone Sodium Succinate (SOLU-Medrol 40MG VIAL) 40 mg Q12HR IV Last administered on 02/22/17 20:16; Start 02/22/17 at 21:00; Stop 02/23/17 at 08:25; Status DC Ceftriaxone Sodium 1 gm/ Sodium Chloride 50 ml @ 100 mls/hr Q24H IV Last administered on 02/23/17 09:07; Start 02/22/17 at 09:00 Apixaban (Eliquis) 5 mg BID PO Last administered on 02/23/17 09:08; Start at 09:00 Pantoprazole Sodium (Protonix) 40 mg DAILYAC PO Last administered on 02/23/17 09:08; Start 02/22/17 at 09:30 Nicotine (Nicoderm Cq 14mg) 1 patch PRN DAILY PRN TD SMOKING CESSATION Last administered on 02/23/17 09:07; Start 02/22/17 at 11:30 Oxycodone/ Acetaminophen (Percocet 10/325) 1 tab PRN Q6HRS PRN PO PAIN Last administered on 02/23/17 07:45; Start 02/22/17 at 11:30 Oxycodone/ Acetaminophen (Percocet 10/325) 2 tab PRN Q6HRS PRN PO PAIN; Start 02/22/17 at 11:30 Prednisone (Prednisone) 40 mg DAILY PO Last administered on 02/23/17 09:08; Start 02/23/17 at 09:00 Montelukast Sodium (Singulair) 10 mg QHS PO ; Start 02/23/17 at 21:00 Guaifenesin (Mucinex) 600 mg BID PO Last administered on 02/23/17 09:08; Start 02/23/17 at 09:00 Albuterol/ Ipratropium (Duoneb) 3 ml RTQID NEB ; Start 02/23/17 at 09:15 Active Scripts Active [place] 5-325 Tablet (Acetaminophen/Hydrocodone Bitart) 1 Each Tablet 1-2 Tab PO Q4-6HRS Reported Celexa (Citalopram Hydrobromide) 20 Mg Tablet 20 Mg PO DAILY Alprazolam 0.5 Mg Tablet 1 Tab PO BID PRN Amlodipine Besylate 10 Mg Tablet 10 Mg PO DAILY Paroxetine Hcl 20 Mg Tablet 20 Mg PO DAILY Eliquis (Apixaban) 5 Mg Tablet 5 Mg PO BID [amlododipine] Lovastatin 20 Mg Tablet 20 Mg PO HS Lisinopril 20 Mg Tablet 20 Mg PO DAILY Prednisone 10 Mg Tablet 10 Mg PO DAILY Albuterol Sulfate Neb Soln (Albuterol Sulfate) 2.5 Mg/3 Ml Vial.neb 2.5 Mg NEB BID Vitals/I & O Vital Sign - Last 24 Hours 02/22/17 02/22/17 02/22/17 02/22/17 10:24 11:00 11:52 12:26 Temp 97.7 97.7 Pulse 74 Resp 24 B/P (MAP) 115/63 (80) Pulse Ox 96 94 95 95 O2 Delivery Room Air Nasal Cannula O2 Flow Rate 3.0 3.0 3.0 02/22/17 02/22/17 02/22/17 02/22/17 13:43 15:15 15:49 18:34 Temp 97.9 97.9 Pulse 75 Resp 20 B/P (MAP) 121/58 (79) Pulse Ox 95 94 95 9 O2 Delivery Room Air Nasal Cannula Nasal Cannula O2 Flow Rate 3.0 3.0 3.0 02/22/17 02/22/17 02/22/17 02/22/17 19:35 20:00 20:15 21:15 Temp 98.0 98.0 Pulse 74 Resp 19 18 20 B/P (MAP) 105/74 (84) Pulse Ox 96 O2 Delivery Nasal Cannula Nasal Cannula Room Air Room Air O2 Flow Rate 3.0 3.0 02/22/17 02/23/17 02/23/17 02/23/17 23:42 03:50 07:45 07:45 Temp 97.7 97.7 98.0 97.7 97.7 98.0 Pulse 90 74 77 Resp 20 22 20 B/P (MAP) 128/73 (91) 100/58 (72) 122/69 (86) Pulse Ox 95 95 93 O2 Delivery Nasal Cannula Nasal Cannula Nasal Cannula Nasal Cannula O2 Flow Rate 2.5 3.0 3.0 3.0 02/23/17 02/23/17 08:48 09:08 Pulse 77 B/P (MAP) 122/69 Pulse Ox 93 O2 Delivery Nasal Cannula O2 Flow Rate 3.0 KAITLYNN BUTLER MD Feb 23, 2017 10:16
[2017-02-23 11:10] VITALS: BP 113/71
[2017-02-23 14:45] VITALS: BP 127/56
[2017-02-23 19:30] VITALS: BP 132/60
[2017-02-23] MEDS: ATORVASTATIN CALCIUM 10 MG TABLET. PO SCH (21:09)
[2017-02-23] MEDS: MONTELUKAST SODIUM 10 MG TABLET. PO SCH (21:10)
[2017-02-23 23:05] VITALS: BP 107/59
[2017-02-24] MEDS: oxyCODONE/APAP 10/325 1 TAB TABLET PO PRN ×3 (01:56→17:16)
[2017-02-24 03:05] VITALS: BP 143/80
[2017-02-24 07:00] VITALS: BP 118/84
[2017-02-24] MEDS: IPRATRPIUM/ALBUTEROL 0.5/2.5MG 3 ML NEBU. NEB SCH ×4 (08:00→19:34)
[2017-02-24] MEDS: APIXABAN 5 MG TABLET. PO SCH ×2 (08:26→20:58)
[2017-02-24] MEDS: predniSONE 20 MG TABLET PO SCH (08:27)
[2017-02-24] MEDS: PANTOPRAZOLE 40 MG TABLET.DR. PO SCH (08:27)
[2017-02-24] MEDS: LISINOPRIL 20 MG TABLET PO SCH (08:27)
[2017-02-24] MEDS ORDERED: ANTI-COAG MONITOR BY PHARMACY. MC PRN (08:45)
[2017-02-24 11:00] VITALS: BP 105/49
--- NOTE | 2017-02-24 12:36 | PDOC ---
PULMONARY PROGRESS NOTES Subjective Still soa and not feeling well Vitals Vital Signs Date Time Temp Pulse Resp B/P (MAP) Pulse Ox O2 Delivery O2 Flow Rate FiO2 02/24/17 11:55 Nasal Cannula 3.0 02/24/17 11:32 93 02/24/17 11:00 97.9 75 20 105/49 (67) 97.9 ROS: No Nausea, No Chest Pain, No Abdominal Pain General: Alert, Oriented X4 HEENT: Other (nc at perrl) Lungs: Clear, Other Cardiovascular: S1, S2 Abdomen: Soft, Non-tender Neuro Exam: Alert, Oriented Extremities: No Edema Skin: Warm Medications Active Scripts Medications Dose Route/Sig Max Daily Dose Days Date Category Celexa (Citalopram Hydrobromide) 20 Mg Tablet 20 Mg PO DAILY 02/21/17 Reported Alprazolam 0.5 Mg Tablet 1 Tab PO BID PRN 02/21/17 Reported Amlodipine Besylate 10 Mg Tablet 10 Mg PO DAILY 02/21/17 Reported Paroxetine Hcl 20 Mg Tablet 20 Mg PO DAILY 02/21/17 Reported Eliquis (Apixaban) 5 Mg Tablet 5 Mg PO BID 02/21/17 Reported [amlododipine] 01/03/17 Reported Lovastatin 20 Mg Tablet 20 Mg PO HS 01/03/17 Reported Lisinopril 20 Mg Tablet 20 Mg PO DAILY 01/03/17 Reported Prednisone 10 Mg Tablet 10 Mg PO DAILY 01/03/17 Reported [place] 5-325 Tablet (Acetaminophen/Hydrocodone Bitart) 1 Each Tablet 1-2 Tab PO Q4-6HRS 04/29/16 Rx Albuterol Sulfate Neb Soln (Albuterol Sulfate) 2.5 Mg/3 Ml Vial.neb 2.5 Mg NEB BID 05/11/[address] reviewed, Stable CT appearance of the 1.9 cm nodular groundglass opacity within the right upper lobe. Impression . IMPRESSION: 1. Uhjsj-ys-pdscqba hypoxemic respiratory failure secondary to acute exacerbation of chronic obstructive pulmonary disease, acute bronchitis versus others. 2. Abnormal CT of the chest with right upper lobe density 3. Tobacco habituation. 4. Snoring, excessive daytime sleepiness and obesity, probable obstructive sleep apnea-hypopnea syndrome. 5. Pulmonary embolism. 6. Hypertension. 7. Allergic rhinitis. Plan . d/c tobacco steroids Eliquis follow up CT of chest as outpt or PET Scan, unfortunately pt with no insurance to cover the PET RANI KAUR MD Feb 24, 2017 12:36
[2017-02-24 15:00] VITALS: BP 130/80
--- NOTE | 2017-02-24 18:37 | PDOC ---
PROGRESS NOTES Subjective Still SOA and dyspneic, no chest pain, not smoking, urinating fine, bowels ok, no fever, appetite good, sleeping Objective Afebrile General: Anxious Heart: RRR Lungs: expiratory wheezes Abd: obese, soft non tender Ext: no C/C/E skin: good turgor Psych: normal mood Vital Signs Vital Signs Date Time Temp Pulse Resp B/P (MAP) Pulse Ox O2 Delivery O2 Flow Rate FiO2 02/24/17 17:16 95 Nasal Cannula 3.0 02/24/17 15:00 98.1 76 16 130/80 (97) 98.1 I & O Intake and Output 02/25/17 07:00 Intake Total 320 ml Balance 320 ml Intake Oral 320 ml # Voids 2 # Bowel Movements 1 Assessment and Plan Problems Medical Problems: (1) Acute respiratory failure with hypoxemia - continue pulm management, steroids, neb tx, supplemental O2 Status: Acute (2) Chest pain - hx of PE, on eliquis (3) emphysema (4) thoracic aorta atherosclerosis (5) chronic pain - on narcotics Status: Acute Problems: Frank DAVENPORT MD Feb 24, 2017 18:37
[2017-02-24 19:45] VITALS: BP 107/69
[2017-02-24] MEDS: ATORVASTATIN CALCIUM 10 MG TABLET. PO SCH (20:58)
[2017-02-24] MEDS: MONTELUKAST SODIUM 10 MG TABLET. PO SCH (20:58)
[2017-02-24 22:35] VITALS: BP 121/82
[2017-02-25] MEDS: oxyCODONE/APAP 10/325 1 TAB TABLET PO PRN ×3 (03:21→14:30)
[2017-02-25 03:25] VITALS: BP 128/80
[2017-02-25 07:00] VITALS: BP 131/87
[2017-02-25] MEDS: IPRATRPIUM/ALBUTEROL 0.5/2.5MG 3 ML NEBU. NEB SCH ×4 (07:46→19:52)
[2017-02-25] MEDS ORDERED: ZOLPIDEM 5 MG TABLET. PO PRN (09:00)
[2017-02-25] MEDS: LISINOPRIL 20 MG TABLET PO SCH (09:04)
[2017-02-25] MEDS: NICOTINE 14MG PATCH. TD PRN (09:04)
[2017-02-25] MEDS: PANTOPRAZOLE 40 MG TABLET.DR. PO SCH (09:04)
[2017-02-25] MEDS: APIXABAN 5 MG TABLET. PO SCH ×2 (09:05→20:57)
[2017-02-25] MEDS: predniSONE 20 MG TABLET PO SCH (09:05)
--- NOTE | 2017-02-25 09:06 | PDOC ---
PROGRESS NOTES Subjective Up all night. Able to get to bathroom but otherwise inactive to to exertional dyspnea, still having coughing fits. Concerned about pain meds at discharge Objective Afebrile BP: [] General: [] Heart: [] Lungs: [] Abd: [] Ext: [] WBC: [] Hgb: [] K+: [] Creat: [] Vital Signs Vital Signs Date Time Temp Pulse Resp B/P (MAP) Pulse Ox O2 Delivery O2 Flow Rate FiO2 02/25/17 07:49 94 Nasal Cannula 3.0 02/25/17 07:00 98.1 71 20 131/87 (102) 98.1 Assessment and Plan Problems Medical Problems: (1) Acute respiratory failure with hypoxemia Status: Acute (2) Chest pain Status: Acute Problems: Frank DAVENPORT MD Feb 25, 2017 09:06
[2017-02-25 10:57] VITALS: BP 117/78
[2017-02-25 15:23] VITALS: BP 142/83
[2017-02-25] MEDS ORDERED: DEXTROSE 50% 25 GM / 50ML DISP.SYRIN. IV PRN (18:15)
[2017-02-25 19:00] VITALS: BP 130/91
[2017-02-25] MEDS: ATORVASTATIN CALCIUM 10 MG TABLET. PO SCH (20:56)
[2017-02-25] MEDS: MONTELUKAST SODIUM 10 MG TABLET. PO SCH (20:57)
[2017-02-25 23:00] VITALS: BP 138/86
[2017-02-26 02:47] VITALS: BP 131/86
[2017-02-26] MEDS: oxyCODONE/APAP 10/325 1 TAB TABLET PO PRN ×2 (06:33→12:38)
[2017-02-26 07:00] VITALS: BP 131/84
[2017-02-26] MEDS: PANTOPRAZOLE 40 MG TABLET.DR. PO SCH (07:28)
[2017-02-26] MEDS: IPRATRPIUM/ALBUTEROL 0.5/2.5MG 3 ML NEBU. NEB SCH ×3 (07:31→15:19)
[2017-02-26] MEDS: INSULIN ASPART 300 UNITS/3 ML INSULN.PEN SQ SCH ×3 (08:00→17:00)
[2017-02-26] MEDS: LISINOPRIL 20 MG TABLET PO SCH (08:44)
[2017-02-26] MEDS: APIXABAN 5 MG TABLET. PO SCH (08:44)
[2017-02-26] MEDS: predniSONE 20 MG TABLET PO SCH (08:44)
--- NOTE | 2017-02-26 10:06 | PDOC ---
PULMONARY PROGRESS NOTES Subjective Still soa and not feeling well Vitals Vital Signs Date Time Temp Pulse Resp B/P (MAP) Pulse Ox O2 Delivery O2 Flow Rate FiO2 02/26/17 08:44 65 131/84 02/26/17 07:31 97 Nasal Cannula 3.0 02/26/17 07:00 97.9 21 97.9 ROS: No Nausea, No Chest Pain, No Abdominal Pain General: Alert, Oriented X4 HEENT: Other (nc at perrl) Lungs: Clear, Other Cardiovascular: S1, S2 Abdomen: Soft, Non-tender Neuro Exam: Alert, Oriented Extremities: No Edema Skin: Warm Labs Laboratory Tests Test 02/26/17 08:43 Glucose (Fingerstick) 121 mg/dL (70-99) Laboratory Tests Test 02/26/17 08:43 Glucose (Fingerstick) 121 mg/dL (70-99) Medications Active Scripts Medications Dose Route/Sig Max Daily Dose Days Date Category Celexa (Citalopram Hydrobromide) 20 Mg Tablet 20 Mg PO DAILY 02/21/17 Reported Alprazolam 0.5 Mg Tablet 1 Tab PO BID PRN 02/21/17 Reported Amlodipine Besylate 10 Mg Tablet 10 Mg PO DAILY 02/21/17 Reported Paroxetine Hcl 20 Mg Tablet 20 Mg PO DAILY 02/21/17 Reported Eliquis (Apixaban) 5 Mg Tablet 5 Mg PO BID 02/21/17 Reported [amlododipine] 01/03/17 Reported Lovastatin 20 Mg Tablet 20 Mg PO HS 01/03/17 Reported Lisinopril 20 Mg Tablet 20 Mg PO DAILY 01/03/17 Reported Prednisone 10 Mg Tablet 10 Mg PO DAILY 01/03/17 Reported [place] 5-325 Tablet (Acetaminophen/Hydrocodone Bitart) 1 Each Tablet 1-2 Tab PO Q4-6HRS 04/29/16 Rx Albuterol Sulfate Neb Soln (Albuterol Sulfate) 2.5 Mg/3 Ml Vial.neb 2.5 Mg NEB BID 05/11/[address] reviewed, Stable CT appearance of the 1.9 cm nodular groundglass opacity within the right upper lobe. Impression . IMPRESSION: 1. Kuucj-gj-ihhobud hypoxemic respiratory failure secondary to acute exacerbation of chronic obstructive pulmonary disease, acute bronchitis versus others. 2. Abnormal CT of the chest with right upper lobe density 3. Tobacco habituation. 4. Snoring, excessive daytime sleepiness and obesity, probable obstructive sleep apnea-hypopnea syndrome. 5. Pulmonary embolism. 6. Hypertension. 7. Allergic rhinitis. Plan . d/c tobacco steroids Eliquis follow up CT of chest as outpt or PET Scan, unfortunately pt with no insurance to cover the PET RANI KAUR MD Feb 26, 2017 10:06
[2017-02-26 10:55] VITALS: BP 129/88
[2017-02-26] MEDS: NICOTINE 14MG PATCH. TD PRN (14:22)
[2017-02-26 15:24] VITALS: BP 123/80
[2017-02-26] MEDS ORDERED: PANT40TA5 PO (17:00)
[2017-02-26] MEDS ORDERED: PRED-220 PO (17:00)
[2017-02-26] MEDS ORDERED: Nicotine 14MG TD (17:00)
[2017-02-26] MEDS ORDERED: OXYC1TAB9 PO (17:00)
[2017-02-26] MEDS ORDERED: MONT10TA9 PO (17:00)
[2017-02-26] MEDS ORDERED: GUAI600T47 PO (17:00)
[2017-02-26] MEDS ORDERED: ZOLP5TAB PO (17:00)
[2017-02-26] MEDS ORDERED: ALBU2.5V5 NEB (17:00)
--- NOTE | 2017-02-26 17:02 | DISCH ---
DISCHARGE INSTRUCTIONS Condition on Discharge Condition on Discharge: Stable Activity After Discharge Activity Instructions for Disc: Activity as tolerated Diet after Discharge Diet after Discharge: Low Sodium 2 gm Contacting the DRVilma after DC Call your doctor for: If your condition worsens Follow-Up Follow up with: Dr. Davenport within a week, she needs outpatient sleep study and PET scan when Frank DAVENPORT MD Feb 26, 2017 17:02
--- NOTE | 2017-02-26 17:39 | PDOC3 ---
Discharge Summary [facility] Date of Admission: Feb 21, 2017 Discharge Date: Feb 26, 2017 Admitting Diagnosis COPD exac, hypoxemia, acute respiratory failure Problems: Final Diagnosis Problems Medical Problems: (1) Acute respiratory failure with hypoxemia Status: Acute (2) Chest pain Status: Acute CONSULTS [place] Procedures none Brief Hospital Course Ms. Valencia is a 46 old who presented with: Wadkx-bl-kqxziri hypoxemic respiratory failure secondary to acute exacerbation of chronic obstructive pulmonary disease, acute bronchitis vs apnea -hypopnea syndrome., Abnormal CT of the chest with right upper lobe density which is stable at 1.9 cm when compared to prior imaging, Tobacco habituation treated with nicotine patch, Snoring, excessive daytime sleepiness and obesity with plan for outpatient sleep study, probable obstructive sleep, Hx of Pulmonary embolism already on eliquis which was continued, Hypertension - on amlodipine at home which is continued Patient History: FH: heart attack 33 FATHER, , Age:Unknown, Onset:Unknown FHx: kidney failure 32 MOTHER, , Age:Unknown, Onset:Unknown FHx: mental illness G8 DAUGHTER, Onset:Unknown G8 SON, Onset:Unknown Family history: Diabetes mellitus (situation) G8 BROTHER, Onset:Unknown 32 MOTHER, , Age:Unknown, Onset:Unknown G8 SISTER, Onset:Unknown Family history: Hypertension (situation) 32 MOTHER, , Age:Unknown, Onset:Unknown G8 SON, Onset:Unknown Problems: CONDITION AT DISCHARGE: Improved, Stable Diet lo sodium, heart healthy Scheduled Albuterol Sulfate (Albuterol Sulfate Neb Soln), 2.5 MG NEB BID Amlodipine Besylate (Amlodipine Besylate), 10 MG PO DAILY, (Reported) Apixaban (Eliquis), 5 MG PO BID, (Reported) Citalopram Hydrobromide (Celexa), 20 MG PO DAILY, (Reported) Guaifenesin (Mucinex), 600 MG PO BID Lisinopril (Lisinopril), 20 MG PO DAILY, (Reported) Lovastatin (Lovastatin), 20 MG PO HS, (Reported) Montelukast Sodium (Montelukast Sodium Tablet), 10 MG PO QHS Pantoprazole Sodium (Pantoprazole Sodium), 40 MG PO DAILYAC Prednisone (Prednisone), 10 MG PO DAILY Scheduled PRN Alprazolam (Alprazolam), 1 TAB PO BID PRN for ANXIETY / AGITATION, (Reported) Oxycodone Hcl/Acetaminophen (Oxycodone-Acetaminophen 10-325), 1 TAB PO PRN Q6HRS PRN for MILD PAIN Zolpidem Tartrate (Ambien), 5 MG PO PRN QHS PRN for INSOMNIA [Nicotine 14MG], 1 PATCH TD PRN DAILY PRN for SMOKING CESSATION Miscellaneous Medications [amlododipine], (Reported) Discontinued Medications Hydrocodone/Apap 5-325 ([place] 5-325 Tablet), 1-2 TAB PO Q4-6HRS Paroxetine Hcl (Paroxetine Hcl), 20 MG PO DAILY, (Reported) Follow Up withing 1 week with me in office, she will need PET scan, sleep study when she gets insurance Frank DAVENPORT MD Feb 26, 2017 17:39
== END 2017-02-26 18:54 | disposition home or self-care (01) | DRG 175 ==
LOC: ER 16:37 → 2 NORTH 18:06
PROVIDERS: ADMIT Family Medicine; ATTEND Family Medicine
DX: I26.99 Other pulmonary embolism without acute cor pulmonale (principal); J96.21 Acute and chronic respiratory failure with hypoxia; R65.11 Systemic inflammatory response syndrome (SIRS) of non-infectious origin with acute organ dysfunction; J44.1 Chronic obstructive pulmonary disease with (acute) exacerbation; J44.0 Chronic obstructive pulmonary disease with (acute) lower respiratory infection; I70.0 Atherosclerosis of aorta; I10 Essential (primary) hypertension; E11.9 Type 2 diabetes mellitus without complications; F17.210 Nicotine dependence, cigarettes, uncomplicated; G89.4 Chronic pain syndrome; K21.9 Gastro-esophageal reflux disease without esophagitis; M48.00 Spinal stenosis, site unspecified; G43.909 Migraine, unspecified, not intractable, without status migrainosus; E66.01 Morbid (severe) obesity due to excess calories; J30.9 Allergic rhinitis, unspecified; J20.9 Acute bronchitis, unspecified; Z82.49 Family history of ischemic heart disease and other diseases of the circulatory system; Z83.3 Family history of diabetes mellitus; Z87.01 Personal history of pneumonia (recurrent); Z68.39 Body mass index [BMI] 39.0-39.9, adult
CPT/HCPCS: 36415; 36600; 71010; 71250; 80053; 82805; 82962; 83880; 84484; 85025; 85610; 90686; 90732; 93005; 94250; 94620; 94640; 94760; 96374; 99406; J0696; J1650; J2405; J2920; J2930; J7512; J7620; 99285-25

== ENCOUNTER 2017-03-08 13:52 | Emergency (ER) | payer SELFPAY ==
[~2017-03-08] VITALS: Ht 162.6 cm; Wt 104.3 kg
[~2017-03-08 13:52] MED LIST changes: +ALPR0.5T6 PO; +AMLO10TA2 PO; +APIX5TAB PO; +CITA20TA9 PO; +GUAI600T47 PO; +MONT10TA9 PO; +Nicotine 14MG TD; +PANT40TA5 PO; +PARO20TA3 PO; +ZOLP5TAB PO
[2017-03-08] MEDS ORDERED: methylPREDNISolone SOD SUCC PF 125 MG/2 ML VIAL. IV ONE (14:45)
[2017-03-08] MEDS ORDERED: KETOROLAC 30 MG/ML INJ. IV ONE (14:45)
[2017-03-08] MEDS ORDERED: IPRATRPIUM/ALBUTEROL 0.5/2.5MG 3 ML NEBU. NEB ONE (14:45)
[2017-03-08 14:59] LABS: BASO # 0.1 x10^3/uL (0.0-0.2); BASO % 0 % (0-3); EOS % 1 % (0-3); HEMATOCRIT 43.1 % (36.0-47.0); HEMOGLOBIN 14.7 g/dL (12.0-15.5); LYMPH # 3.1 x10^3/uL (1.0-4.8); LYMPH % 21 % (24-48); MEAN CORPUSCULAR HEMOGLOBIN 31 pg (25-35); MEAN CORPUSCULAR HGB CONC 34 g/dL (31-37); MEAN CORPUSCULAR VOLUME 91 fL (79-100); MONO % 6 % (0-9); NEUT % 71 % (31-73); PLATELET COUNT 276 x10^3/uL (140-400); RED BLOOD COUNT 4.75 x10^6/uL (3.50-5.40); RED CELL DISTRIBUTION WIDTH 14.4 % (11.5-14.5); WHITE BLOOD COUNT 14.8 x10^3/uL (4.0-11.0)
--- NOTE | 2017-03-08 15:02 | RAD ---
Portable chest, 03/08/2017: History: Shortness of breath, coughing up blood Comparison is made to a study from 02/21/2017. The heart size and pulmonary vascularity are normal. No pulmonary infiltrates are seen. There is no evidence of pleural fluid. IMPRESSION: No acute cardiopulmonary abnormality is detected.
[2017-03-08 15:10] LABS: CALCIUM 8.9 mg/dL (8.5-10.1); CREATININE 0.6 mg/dL (0.6-1.0); GFR 106.7; POTASSIUM 3.5 mmol/L (3.5-5.1)
[2017-03-08 15:16] LABS: ALBUMIN 3.6 g/dL (3.4-5.0); TOTAL BILIRUBIN 0.4 mg/dL (0.2-1.0); TOTAL PROTEIN 7.3 g/dL (6.4-8.2)
[2017-03-08 15:27] LABS: CKMB MASS < 0.5 ng/mL (0.0-3.6); CREATINE KINASE 29 U/L (26-192)
[2017-03-08 15:28] VITALS: BP 105/55
--- NOTE | 2017-03-08 15:42 | PHYS DOC ---
Past Medical History Past Medical History: COPD, Hypertension, Migraines, Pneumonia, Other Additional Past Medical Histor: obesity, chronic back pain, PE Past Surgical History: Other Additional Past Surgical Histo: D&C Alcohol Use: None Drug Use: None Adult General Chief Complaint Chief Complaint: HEMATEMESIS/VOMITING BLOOD HPI HPI Patient is a 46 year old female with a history of COPD who presents with a complaint of cough and coughing up blood today. The patient about 2 months ago was diagnosed with a PE and was started on Eliquis. Then she was recently hospitalized for COPD exacerbation from February 21. She was doing better but then this morning was feeling more short of air and was coughing. She coughed and coughed, then she coughed up some blood. She brought in a sample which is a few drops of bright red blood on a napkin in a blood bag. Patient has not continued to cough up any blood. She has not seen any blood anywhere else. She does feel somewhat short of air and dyspneic. She feels congested and has pain in her right ear and right side of her throat. She feels a little bit worse. PCP Dr. Galindo Review of Systems Review of Systems Constitutional: Denies fever or chills [] HENT: As in history of present illness Respiratory: As in history of present illness Cardiovascular: She does not have any cardiac sounding chest pain today GI: Denies abdominal pain, nausea, vomiting, bloody stools or diarrhea [] : Denies dysuria or hematuria [] Musculoskeletal: Denies back pain or joint pain [] Integument: Denies rash or skin lesions [] Neurologic: She does have a headache Current Medications Current Medications Current Medications Medications (Trade) Dose Ordered Sig/Franny Start Time Stop Time Status Last Admin Dose Admin Albuterol/ Ipratropium (Duoneb) 3 ml 1X ONCE 03/08/17 14:45 03/08/17 14:46 DC 03/08/17 15:01 3 ML Ketorolac Tromethamine (Toradol) 30 mg 1X ONCE 03/08/17 14:45 03/08/17 14:52 DC 03/08/17 14:54 30 MG Methylprednisolone Sodium Succinate (SOLU-Medrol 125MG VIAL) 60 mg 1X ONCE 03/08/17 14:45 03/08/17 14:46 DC 03/08/17 14:54 60 MG Allergies Allergies Allergies Coded Allergies Type Severity Reaction Last Updated Verified No Known Drug Allergies 09/06/16 No Physical Exam Physical Exam Constitutional: Obese, slightly dyspneic, her pulse ox on room air was 90% after ambulating to her room. HENT: Normocephalic, atraumatic, bilateral external ears normal, nose normal. [ ] Eyes: conjunctiva normal, no discharge. [] Neck: Normal range of motion, no stridor. [] Cardiovascular:Heart rate regular rhythm, no murmur [] Lungs & Thorax: Moderately good air movement throughout, prolonged expiratory phase throughout, expiratory wheezes in the bases bilaterally Skin: Warm, dry, no erythema, no rash. [] Extremities: No tenderness, no cyanosis, no clubbing, ROM intact, no edema. [] Neurologic: Alert and oriented X 3, normal motor function, no focal deficits noted. [] Current Patient Data Vital Signs Vital Signs Date Time Temp Pulse Resp B/P (MAP) Pulse Ox O2 Delivery O2 Flow Rate FiO2 03/08/17 15:28 83 18 105/55 (72) 98 Nasal Cannula 2.0 03/08/17 14:05 98.4 98.4 Lab Values Laboratory Tests Test 03/08/17 14:25 White Blood Count 14.8 x10^3/uL (4.0-11.0) H Red Blood Count 4.75 x10^6/uL (3.50-5.40) Hemoglobin 14.7 g/dL (12.0-15.5) Hematocrit 43.1 % (36.0-47.0) Mean Corpuscular Volume 91 fL (79-100) Mean Corpuscular Hemoglobin 31 pg (25-35) Mean Corpuscular Hemoglobin Concent 34 g/dL (31-37) Red Cell Distribution Width 14.4 % (11.5-14.5) Platelet Count 276 x10^3/uL (140-400) Neutrophils (%) (Auto) 71 % (31-73) Lymphocytes (%) (Auto) 21 % (24-48) L Monocytes (%) (Auto) 6 % (0-9) Eosinophils (%) (Auto) 1 % (0-3) Basophils (%) (Auto) 0 % (0-3) Neutrophils # (Auto) 10.6 x10^3uL (1.8-7.7) H Lymphocytes # (Auto) 3.1 x10^3/uL (1.0-4.8) Monocytes # (Auto) 1.0 x10^3/uL (0.0-1.1) Eosinophils # (Auto) 0.1 x10^3/uL (0.0-0.7) Basophils # (Auto) 0.1 x10^3/uL (0.0-0.2) Sodium Level 143 mmol/L (136-145) Potassium Level 3.5 mmol/L (3.5-5.1) Chloride Level 103 mmol/L (98-107) Carbon Dioxide Level 32 mmol/L (21-32) Anion Gap 8 (6-14) Blood Urea Nitrogen 13 mg/dL (7-20) Creatinine 0.6 mg/dL (0.6-1.0) Estimated GFR (Cockcroft-Gault) 106.7 BUN/Creatinine Ratio 22 (6-20) H Glucose Level 134 mg/dL (70-99) H Calcium Level 8.9 mg/dL (8.5-10.1) Total Bilirubin 0.4 mg/dL (0.2-1.0) Aspartate Amino Transferase (AST) 9 U/L (15-37) L Alanine Aminotransferase (ALT) 24 U/L (14-59) Alkaline Phosphatase 82 U/L (46-116) Creatine Kinase 29 U/L (26-192) Creatine Kinase MB (Mass) < 0.5 ng/mL (0.0-3.6) Creatine Kinase MB Relative Index % (0-4) Troponin I Quantitative < 0.017 ng/mL (0.000-0.055) TJ-Iry-J-Type Natriuretic Peptide 16 pg/mL (0-124) Total Protein 7.3 g/dL (6.4-8.2) Albumin 3.6 g/dL (3.4-5.0) Albumin/Globulin Ratio 1.0 (1.0-1.7) Laboratory Tests 03/08/17 14:25 Laboratory Tests 03/08/17 14:25 EKG EKG 12-lead EKG read by me. Sinus rhythm. Heart rate 98. There are no acute ST or T weight changes indicative of ischemia or infarction. No STEMI. No rhythm disturbance. 1407[] Radiology/Procedures Radiology/Procedures [] Course & Med Decision Making Course & Med Decision Making Pertinent Labs and Imaging studies reviewed. (See chart for details) 46-year-old female with a history of COPD who is on Eliquis for pulmonary embolism presents with dyspnea and coughing up a relatively small amount of blood after coughing quite a bit. I'm not that concerned about her hemoptysis. It has not persisted. It sounds like it occurred after quite a bit of coughing. I discussed this with the patient who understands. I ordered a breathing treatment for the patient. I discussed the patient with Dr. Lin at change of shift. He will assume care of the patient. [] Dragon Disclaimer Dragon Disclaimer This electronic medical record was generated, in whole or in part, using a voice recognition dictation system. Departure Departure Impression: Primary Impression: Hemoptysis Disposition: HOME, SELF-CARE Condition: STABLE Referrals: Frank GALINDO MD (PCP) Patient Instructions: Chronic Obstructive Pulmonary Disease, Hemoptysis-Brief Additional Instructions: Thank you for allowing us to participate in your care today. Followup with your primary care physician on Friday as scheduled. I informed the physician contracting specialist for your primary care doctor of your visit today by phone and have communicated the plan. If you do not have a primary care provider you can ask for a list of our primary care providers. Return to the emergency department you have any new or concerning findings. This should be evaluated by the primary care physician and any necessary consulting services for continued management within a few days after discharge. Return to emergency room if you have any new or concerning symptoms including but not limited to fever, chills, nausea, vomiting, intractable pain, any new rashes, chest pain, shortness of air, uncontrolled bleeding, difficulty breathing, and/or vision loss. Assessment/Plan Assessment/Plan 38-year-old female presenting to the emergency department today with hemoptysis after being started on Eliquis for pulmonary embolism signed out to me at 3 PM. I reviewed the patient's chest x-ray which did not show any acute findings. Blood work shows a nonspecific leukocytosis. On examination the patient has mild wheezing but she reports is improved from previous. She is feeling much better. She was able to undergo ambulation in the emergency department without sustaining any hypoxia or significant respiratory distress. I discussed the case with her pcps contracting specialist doctor Dr. Vallecillo. patient has appointment on Friday. Patient was subsequent discharged home to follow-up with her PCP on Friday. Problems: VENKAT LIN MD Mar 08, 2017 15:42 TESS MOTA MD Mar 08, 2017 16:38
--- NOTE | 2017-03-09 12:14 | EKG ---
[facility] [address] [place] [address] Test Date: 2017-03-08 Test Time: 14:07:22 Pat Name: AMARI GREEN Department: Room: Gender: F Technician Automatic: : 1970 Requested By: ETSS MOTA Order Number: [id number] Reading MD: Measurements Intervals [place] Rate: 98 P: -43 OR: 158 QRS: 64 QRSD: 86 T: -13 QT: 350 QTc: 449 Interpretive Statements SINUS RHYTHM NON SPECIFIC T ABNORMALITY RI6.01 Unconfirmed report No previous ECG available for comparison
== END 2017-03-08 15:57 | disposition home or self-care (01) ==
LOC: ER 13:52
DX: R04.2 Hemoptysis (principal); R06.02 Shortness of breath; H92.01 Otalgia, right ear; D72.829 Elevated white blood cell count, unspecified; J44.9 Chronic obstructive pulmonary disease, unspecified; I10 Essential (primary) hypertension; G43.909 Migraine, unspecified, not intractable, without status migrainosus; E66.9 Obesity, unspecified; G89.29 Other chronic pain; Z87.01 Personal history of pneumonia (recurrent); Z68.39 Body mass index [BMI] 39.0-39.9, adult; Z86.711 Personal history of pulmonary embolism
CPT/HCPCS: 36415; 71010; 80053; 82553; 83880; 84484; 85025; 93005; 94250; 94640; 96374; 96375; 99285; J1885; J2930; J7620